=== PATIENT | male | born 1990 | race Caucasian/White ===

== ENCOUNTER 2017-06-09 11:27 | Inpatient (IN) | payer BC ==
[2017-06-09 16:45] VITALS: BMI 18.4
--- NOTE | 2017-06-09 17:08 | HP ---
COWS - Scale Resting Pulse: 0= ID 80 or Below Sweatin= Chills/Flushing Restless Observation: 1= Difficult to Sit Still Pupil Size: 1= Pupils >than Normal Bone or Joint Aches: 2= Severe Diffuse Aches Runny Nose/ Eye Tearin= Runny Nose/Eyes GI Upset > 30mins: 2= Nausea/Diarrhea Tremor Observation: 2= Slight Tremor Visible Yawning Observation: 1= 1-2x During Session Anxiety or Irritability: 2=Irritable/Anxious Goose Flesh Skin: 0=Smooth Skin COWS Score: 14 CIWA Score - CIWA Score Nausea/Vomitin Muscle Tremors: 2 Anxiety: 2 Agitation: 1-Slight > Activity Paroxysmal Sweats: 2 Orientation: 1-Uncertain about Date Tacttile Disturbances: 1-Very Mild Itch/Numbness Auditory Disturbances: 0-None Visual Disturbances: 0-None Headache: 2-Mild CIWA-Ar Total Score: 13 Admission ROS [facility] - HPI Chief Complaint: WITHDRAWAL SYMPTOMS Allergies/Adverse Reactions: Allergies Allergy/AdvReac Type Severity Reaction Status Date / Time No Known Allergies Allergy Verified 07/29/14 13:17 History of Present Illness: 26 Y.O. MAN WITH A HISTORY OF ALCOHOL, HEROIN, COCAINE AND OPIATE DEPENDENCE IS HERE SEEKING DETOX. HE DOES NOT RECALL HIS LAST ADMISSION TO DETOX. LONGEST PERIOD CLEAN HAS BEEN 1 YEAR. PT. FILLED HIS SUBOXONE PRESCRIPTION ON 05/31/17 BUT REPORTS HIS MEDICATION WAS STOLEN AT HIS HOMELESS LONG-TERM SHORTLY AFTER THEM MEDICATION WAS FILLED. Exam Limitations: No Limitations - Ebola screening Have you traveled outside of the country in the last 21 days: No Have you had contact with anyone from an Ebola affected area: No Have you been sick,other than usual withdrawal symptoms: No Do you have a fever: No - Review of Systems Constitutional: Chills, Loss of Appetite, Unintentional Wgt. Loss EENT: reports: Tearing, Nose Congestion Respiratory: reports: Cough Cardiac: reports: No Symptoms Reported GI: reports: Diarrhea, Nausea : reports: No Symptoms Reported Musculoskeletal: reports: Back Pain Integumentary: reports: No Symptoms Reported Neuro: reports: No Symptoms reported Endocrine: reports: No Symptoms Reported Hematology: reports: No Symptoms Reported Psychiatric: reports: Depressed, other (H/O BIPOLAR) Other Systems: Reviewed and Negative Patient History - Patient Medical History Hx Anemia: No Hx Asthma: No Hx Chronic Obstructive Pulmonary Disease (COPD): No Hx Cancer: No Hx Cardiac Disorders: No Hx Congestive Heart Failure: No Hx Hypertension: No Hx Hypercholesterolemia: No Hx Pacemaker: No HX Cerebrovascular Accident: No Hx Seizures: No Hx Dementia: No Hx Diabetes: No Hx Gastrointestinal Disorders: No Hx Liver Disease: No Hx Genitourinary Disorders: No Hx Sexually Transmitted Disorders: No Hx Renal Disease (ESRD): No Hx Thyroid Disease: No Hx Human Immunodeficiency Virus (HIV): No (negative) Hx Hepatitis C: Yes (diagnosed 2013; treated with Harvoni ) Hx Depression: Yes Hx Suicide Attempt: No (denies) Hx Bipolar Disorder: Yes Hx Schizophrenia: No - Patient Surgical History Past Surgical History: No Hx Neurologic Surgery: No Hx Cataract Extraction: No Hx Cardiac Surgery: No Hx Lung Surgery: No Hx Breast Surgery: No Hx Breast Biopsy: No Hx Abdominal Surgery: No Hx Appendectomy: No Hx Cholecystectomy: No Hx Genitourinary Surgery: No Hx Section: No Hx Orthopedic Surgery: No Anesthesia Reaction: No - PPD History Previous Implant?: Yes Documented Results: Negative w/o proof Date: 07/31/14 PPD to be Administered?: Yes - Reproductive History Patient is a Female of Child Bearing Age (11 -55 yrs old): No - Smoking Cessation Smoking history: Current every day smoker Have you smoked in the past 12 months: Yes Aproximately how many cigarettes per day: 10 Hx Chewing Tobacco Use: No Initiated information on smoking cessation: Yes 'Breaking Loose' booklet given: 06/09/17 - Substance & Tx. History Hx Alcohol Use: Yes Hx Substance Use: Yes Substance Use Type: Alcohol, Cocaine, Heroin, Marijuana Hx Substance Use Treatment: Yes (Detox: 2014) - Substances Abused Alcohol Route: Oral Frequency: 3-6 times per week Amount used: 1 pint of liquor Age of first use: 18 Date of Last Use: 06/08/17 Heroin Route: Injection Frequency: Daily Amount used: 4-5 Age of first use: 20 Date of Last Use: 06/09/17 Cocaine Route: Smoking Frequency: 3-6 times per week Amount used: $20 Age of first use: 26 Date of Last Use: 06/08/17 Marijuana/Hashish Route: Smoking Frequency: 3-6 times per week Amount used: $20 Age of first use: 14 Date of Last Use: 06/08/17 Family Disease History - Family Disease History Family History: Denies Admission Physical Exam [facility] - Vital Signs Vital Signs: Vital Signs - 24 hr 06/09/17 16:40 Temperature 97.4 F L Pulse Rate 72 Respiratory 20 Rate Blood Pressure 127/81 - Physical General Appearance: Yes: Thin, Tremorous, Anxious HEENTM: Yes: Hearing grossly Normal, Normal ENT Inspection, Normocephalic Respiratory: Yes: Chest Non-Tender, Lungs Clear, Normal Breath Sounds, No Respiratory Distress, No Accessory Muscle Use Neck: Yes: No masses,lesions,Nodules, Trachea in good position Breast: Yes: Breast Exam Deferred Cardiology: Yes: Regular Rhythm, Regular Rate Abdominal: Yes: Normal Bowel Sounds, Non Tender Genitourinary: Yes: Other (NO COMPLAINTS REPORTED) Back: Yes: Normal Inspection Musculoskeletal: Yes: Gait Steady Extremities: Yes: Normal Inspection, Normal Range of Motion, Non-Tender Neurological: Yes: Alert, Normal Mood/Affect, Normal Response Integumentary: Yes: Dry, Warm, Track [place] Lymphatic: Yes: Within Normal Limits - Diagnostic (1) Alcohol dependence with uncomplicated withdrawal Current Visit: Yes Status: Chronic (2) Opioid dependence with withdrawal Current Visit: Yes Status: Chronic (3) Cocaine dependence, uncomplicated Current Visit: Yes Status: Chronic (4) Hepatitis C Current Visit: Yes Status: Chronic (5) Nicotine dependence Current Visit: Yes Status: Chronic (6) Cannabis dependence, uncomplicated Current Visit: Yes Status: Chronic Cleared for Admission [facility] - Detox or Rehab [facility] Level of Care: Medically Managed Detox Regimen/Protocol: Methadone/Valium [facility] Breath Alcohol Content Breath Alcohol Content: 0 Urine Drug Screen - Results Drug Screen Negative: No Urine Drug Screen Results: THC-Marijuana, LAWRENCE-Cocaine, OPI-Opiates
[2017-06-09] MEDS ORDERED: MAG HYDROX/AL HYDROX/SIMETH 30 ML UNIT-DOSE CUP PO PRN (17:17)
[2017-06-09] MEDS ORDERED: MAGNESIUM CITRATE 300 ML BOTTLE PO PRN (17:17)
[2017-06-09] MEDS ORDERED: LOPERAMIDE HCL 2 MG CAPSULE PO PRN (17:17)
[2017-06-09] MEDS ORDERED: MENTHOL/PHENOL 1 EACH UD MM PRN (17:17)
[2017-06-09] MEDS ORDERED: IBUPROFEN 400 MG TABLET (FP) PO PRN (17:17)
[2017-06-09] MEDS ORDERED: hydrOXYzine PAMOATE 50 MG CAPSULE (FP) PO PRN (17:17)
[2017-06-09] MEDS ORDERED: P-EPHED 60MG/TRIPROLIDI 2.5MG TABLET PO PRN (17:17)
[2017-06-09] MEDS ORDERED: MAGNESIUM HYDROX 2400MG/30ML ORAL SUSPENSION 30 ML CUP PO PRN (17:17)
[2017-06-09] MEDS ORDERED: guaiFENesin/D-METHORPHAN HB 10 ML UNIT-DOSE CUPS PO PRN (17:17)
[2017-06-09] MEDS ORDERED: ACETAMINOPHEN 325 MG TABLET (FP) PO PRN (17:17)
[2017-06-09] MEDS ORDERED: diazePAM 5 MG TABLET PO ONE (18:15)
[2017-06-09] MEDS ORDERED: METHADONE HCL 10 MG TABLET (FOR DETOX USE ONLY) PO ONE ×2 (18:15→23:00)
[2017-06-09] MEDS ORDERED: MELATONIN 5 MG TABLETS PO PRN (22:00)
[2017-06-09] MEDS: THIAMINE HCL 100 MG TABLET (FP) PO SCH (22:48)
[2017-06-09] MEDS: diazePAM 5 MG TABLET PO SCH (22:49)
[2017-06-09 23:04] LABS: URINE APPEARANCE SLCLOUDY; URINE BLOOD NEGATIVE (NEGATIVE); URINE COLOR AMBER; URINE GLUCOSE (UA) NEGATIVE (NEGATIVE); URINE KETONE TRACE (NEGATIVE); URINE LEUK ESTERASE NEGATIVE (NEGATIVE); URINE NITRITE NEGATIVE (NEGATIVE); URINE PROTEIN 2+ (NEGATIVE)
[2017-06-09 23:09] LABS: EPI CELLS RARE /HPF (FEW); URINE MUCUS MANY
[2017-06-10] MEDS: diazePAM 5 MG TABLET PO SCH ×3 (05:20→23:01)
[2017-06-10] MEDS ORDERED: METHADONE HCL 10 MG TABLET (FOR DETOX USE ONLY) PO SCH (10:00)
[2017-06-10] MEDS ORDERED: PRENATAL VITAMINS W/ FOLIC ACID TABLET (FP) PO SCH (10:00)
--- NOTE | 2017-06-10 10:01 | EKG ---
Test Reason : Blood Pressure : / mmHG Vent. Rate : 061 BPM Atrial Rate : 061 BPM P-R Int : 112 ms QRS Dur : 094 ms QT Int : 428 ms P-R-T Axes : 040 076 062 degrees QTc Int : 430 ms NORMAL SINUS RHYTHM NO PREVIOUS ECGS AVAILABLE Confirmed by BRAYDON DURAND MD ([id number]) on 06/10/2017 10:00:55 AM Referred By: Confirmed By:BRAYDON DURAND MD
--- NOTE | 2017-06-10 10:07 | PN ---
[facility] CIWA - CIWA Score Nausea/Vomitin Muscle Tremors: 3 Anxiety: 3 Agitation: 3 Paroxysmal Sweats: 1-Minimal Palms Moist Orientation: 0-Oriented Tacttile Disturbances: 0-None Auditory Disturbances: 0-None Visual Disturbances: 0-None Headache: 0-None Present CIWA-Ar Total Score: 13 S COWS - Scale Resting Pulse: 0= [place] 80 or Below Sweatin= Chills/Flushing Restless Observation: 1= Difficult to Sit Still Pupil Size: 1= Pupils >than Normal Bone or Joint Aches: 1= Mild Discomfort Runny Nose/ Eye Tearin= Nasal Congestion GI Upset > 30mins: 1= Stomach Cramp Tremor Observation of Outstretched Hands: 1= Tremor [place], Not Seen Yawning Observation: 1= 1-2x During Session Anxiety or Irritability: 2=Irritable/Anxious Goose Flesh Skin: 0=Smooth Skin COWS Score: 10 S Progress Note (SOAP) Subjective: nausea, sweats, itnerrupted sleep, anxiety, tremors Objective: 06/10/17 10:06 Vital Signs - 24 hr 06/09/17 06/09/17 06/09/17 16:40 19:08 22:00 Temperature 97.4 F L 97.5 F L 97.7 F Pulse Rate 72 65 68 Respiratory 20 18 17 Rate Blood Pressure 127/81 115/63 132/87 06/10/17 06/10/17 03:30 07:22 Temperature 97.5 F L Pulse Rate 66 Respiratory 18 18 Rate Blood Pressure 98/50 Laboratory Tests 06/09/17 21:02 Urine Color Kati Urine Appearance Slcloudy Urine pH 6.0 Ur Specific Purvis 1.035 Urine Protein 2+ H Urine Glucose (UA) Negative Urine Ketones Trace H Urine Blood Negative Urine Nitrite Negative Urine Bilirubin 2.0 Urine Urobilinogen 2.0 Ur Leukocyte Esterase Negative Urine WBC (Auto) 3 Urine RBC (Auto) 4 Ur Epithelial Cells Rare Urine Mucus Many labs still pending Assessment: 06/10/17 10:06 withdrawal sx - cont detox, fluids, encouraeg ambulation
[2017-06-10 10:38] LABS: HEMATOCRIT 41.4 % (35.4-49); HEMOGLOBIN 14.3 GM/dL (11.7-16.9); MCH 29.6 pg (25.7-33.7); MCHC 34.5 g/dl (32.0-35.9); MEAN CELL VOLUME 85.9 fl (80-96); MEAN PLT VOLUME 8.8 fl (7.5-11.1); PLATELET COUNT 310 K/MM3 (134-434); RBC 4.82 M/mm3 (4.00-5.60); RDW 13.4 % (11.9-15.9); WHITE BLOOD COUNT 6.8 K/mm3 (4.0-10.0)
[2017-06-10] MEDS: diazePAM 5 MG TABLET PO PRN ×2 (10:45→18:41)
[2017-06-10 10:51] LABS: ALK PHOS 70 U/L (45-117); ANION GAP 5 (8-16); BILIRUBIN,TOTAL 0.6 mg/dL (0.2-1.0); BLOOD UREA NITROGEN 15 mg/dL (7-18); CALCIUM 8.8 mg/dL (8.5-10.1); CHLORIDE 102 mmol/L (98-107); CO2 31 mmol/L (21-32); CREATININE 0.8 mg/dL (0.7-1.3); GLUCOSE,RANDOM 81 mg/dL (74-106); POTASSIUM 3.9 mmol/L (3.5-5.1); SGOT/AST 9 U/L (15-37); SGPT/ALT 10 U/L (12-78); SODIUM 138 mmol/L (136-145)
[2017-06-10] MEDS ORDERED: FLU VACCINE QUAD 60 MCG/0.5 ML (MDV 17-18) IM ONE (12:55)
--- NOTE | 2017-06-10 14:34 | CONSULT ---
[facility] Psychiatric Consult - Data Date of interview: 06/10/17 Admission source: [facility] Identifying data: Patient is a 26 year old male, without kids, unemployed, not receiving financial assistance and currently homeless. This is one of multiple admissions for patient. Pt. admitted to for alcohol, marijuana, cocaine, and opiate dependence. Substance Abuse History: Following information confirmed with Mr. Logan: - Smoking Cessation. Smoking history: Current every day smoker. Have you smoked in the past 12 months: Yes. Aproximately how many cigarettes per day: 10. Hx Chewing Tobacco Use: No. Initiated information on smoking cessation: Yes. ' Breaking Loose' booklet given: 06/09/17. - Substance & Tx. History. Hx Alcohol Use: Yes. Hx Substance Use: Yes. Substance Use Type: Alcohol, Cocaine , Heroin, Marijuana. Hx Substance Use Treatment: Yes (Detox: 2015). - Substances Abused. Alcohol. Route: Oral. Frequency: 3-6 times per week. Amount used: 1 pint of liquor. Age of first use: 18. Date of Last Use: . Heroin. Route: Injection. Frequency: Daily. Amount used: 4-5. Age of first use: 20. Date of Last Use: 06/09/17. Cocaine. Route: Smoking. Frequency: 3-6 times per week. Amount used: $20. Age of first use: 26. Date of Last Use: 06/08/17. Marijuana/Hashish. Route: Smoking. Frequency: 3-6 times per week. Amount used: $20. Age of first use: 14. Date of Last Use: Medical History: Hep C (treated with Harvoni in 2013) Psychiatric History: Pt. reports several psychiatric hospitalizations, most recently in February of 2017 at [facility]. Pt. reports being known to several hospitals in [place] but is unable to remember the names. Pt. reports a diagnosis of Bipolar disorder. States outpatient care was provided by a clinic in [facility] but unsure if he was seeing a psychiatrist. As per pharmacy claims and patient, depakote 250 TID and Zyprexa 40mg (only took 20mg) was prescribed to patient. Pt. reports medication nonadherence. Pt. reports several suicide attempts, most recently last year via cutting. Pt. reports suicide attempts of cutting which have resulted in stitches and a h/o overdose on depakote in 2012. Pt. currently denies suicidal and homcidial ideation. Pt. requesting to restart depakote and zyprexa. Physical/Sexual Abuse/Trauma History: Denies. Mental Status Exam - Mental Status Exam Alert and Oriented to: Time, Place, Person Cognitive Function: Good Patient Appearance: Well Groomed Mood: Sad, Euthymic Affect: Mood Congruent Patient Behavior: Cooperative Speech Pattern: Appropriate Voice Loudness: Normal Thought Process: Goal Oriented Thought Disorder: Not Present Hallucinations: Denies Suicidal Ideation: Denies Homicidal Ideation: Denies Insight/Judgement: Poor Sleep: Fair Appetite: Poor Muscle strength/Tone: Normal Gait/Station: Normal Psychiatric Findings - Problem List ([place] 1, 2,3) (1) Alcohol dependence with uncomplicated withdrawal Current Visit: Yes Status: Acute (2) Cannabis dependence, uncomplicated Current Visit: Yes Status: Chronic (3) Cocaine dependence, uncomplicated Current Visit: Yes Status: Chronic (4) Nicotine dependence Current Visit: Yes Status: Chronic (5) Opioid dependence with withdrawal Current Visit: Yes Status: Acute (6) Substance induced mood disorder Current Visit: Yes Status: Acute (7) Bipolar II disorder Current Visit: Yes Status: Suspected Comment: Self reports - Initial Treatment Plan Initial Treatment Plan: Psychoeducation provided. Detoxification in progress. Valproic level ordered. Depakote 500mg qhs + Zyprexa 5mg qhs ordered. Benefits and side effects discussed. Verbal consent given. Will continue to monitor.
[2017-06-10 17:49] VITALS: BP 102/46; PULSE 53; TEMP 98.5
--- NOTE | 2017-06-10 20:53 | PN ---
[facility] Progress Note Note: As per nursing report patient became restless, attention seeking, not fallowing directions and expressing suicidal behavior, patient sad:' I am going to cut my wrists". Security was called, MD [employer] toilet[employer] salesperson contacted by phone. Patient has been transferred to [facility] for safety due to suicidal behavior s per MD order.
[2017-06-10] MEDS ORDERED: DIVALPROEX SODIUM 500 MG TABLET E.C. PO SCH (22:00)
[2017-06-10] MEDS ORDERED: OLANZapine 5 MG TABLET PO SCH (22:00)
[2017-06-10] MEDS: THIAMINE HCL 100 MG TABLET (FP) PO SCH (23:01)
[2017-06-11] MEDS ORDERED: METHADONE HCL 5 MG TABLET (FOR DETOX USE ONLY) PO SCH (10:00)
[2017-06-11] MEDS ORDERED: diazePAM 5 MG TABLET PO SCH (10:00)
== END 2017-06-10 19:57 | DRG 773 ==
LOC: YASAS 11:27 → Y6N 18:08
PROVIDERS: ADMIT Internal Medicine; ATTEND Internal Medicine
PROC: HZ2ZZZZ Detoxification Services for Substance Abuse Treatment (ICD-10-PCS; principal; 2017-06-09)
DX: F11.23 Opioid dependence with withdrawal (principal); F10.230 Alcohol dependence with withdrawal, uncomplicated; F14.20 Cocaine dependence, uncomplicated; F12.20 Cannabis dependence, uncomplicated; F17.210 Nicotine dependence, cigarettes, uncomplicated; F31.81 Bipolar II disorder; F19.24 Other psychoactive substance dependence with psychoactive substance-induced mood disorder; B18.2 Chronic viral hepatitis C
CPT/HCPCS: 36415; 80053; 81003; 81015; 85027; 86593; 87389; 90688; 93005; 93010; G0008

== ENCOUNTER 2017-06-11 18:14 | Inpatient (IN) | payer BC ==
[2017-06-11 18:35] VITALS: BMI 18.6
--- NOTE | 2017-06-11 21:51 | HP ---
COWS - Scale Resting Pulse: 1= [place] 81-100 Sweatin=Flushed/Facial Moisture Restless Observation: 5= Unable to Sit Still Pupil Size: 1= Pupils >than Normal Bone or Joint Aches: 4=Acute Joint/Muscle Pain Runny Nose/ Eye Tearin= Nasal Congestion GI Upset > 30mins: 2= Nausea/Diarrhea Tremor Observation: 1= Tremor [place], Not Seen Yawning Observation: 4= Several Times/Minute Anxiety or Irritability: 2=Irritable/Anxious Goose Flesh Skin: 0=Smooth Skin COWS Score: 23 CIWA Score - CIWA Score Nausea/Vomitin-Mild Nausea/No Vomiting Muscle Tremors: 3 Anxiety: 3 Agitation: 3 Paroxysmal Sweats: 3 Orientation: 0-Oriented Tacttile Disturbances: 0-None Auditory Disturbances: 0-None Visual Disturbances: 0-None Headache: 3-Moderate CIWA-Ar Total Score: 16 Admission ROS [facility] - HPI Chief Complaint: C/O ONGOING WITHDRAWAL SX'S. SEEKING INAPTIENT DETOX TXMENT. Allergies/Adverse Reactions: Allergies Allergy/AdvReac Type Severity Reaction Status Date / Time No Known Allergies Allergy Verified 06/11/17 21:20 History of Present Illness: 26 Y.O. MALE WITH LONG HX/O POLYSUBSTANCE ABUSE RETURNS TO CONTINUE INPATIENT DETOX AFTER BEING DC 24 HOURS AGO AFTER A 24 HOUR STAY FOR SI. CLIENT WAS SENT TO [facility] YESTERDAY WHERE HE WAS EVALUATED IN THEIR ER AND CLEARED TO RETURN BACK FOR CONTINUATION OF DETOX. PER DC PAPERS DX WAS BRIEF ADJUSTMENT RXN WHICH HAS NOW RESOLVED. UTOX NOW + THC, LAWRENCE, BZO. ON ADMISSION ON 06/09/2017 UTOX WAS POSITIVE FOR OPI AND LAWRENCE WELL. CLIENT CONTINUES TO C/O ONGOING WITHDRAWAL SX'S AND WOULD LIKE TO COMPLETED DETOX FOR ALCOHOL, OPIATE DEPENDENCE. CLIENT WAS STARTED ON A METH/MACARIO REGIMEN. WILL CONT ADJUST AND CONT SAME. PMHX HX/O HEPC WAS TX'ED 2016 REPORTS HX/O BIPOLAR, DEPRESSION, DENIES SI/ HI OR AV HALLUCINATIONS AT THIS TIME. REPORTS LONGEST CLEAN TIME 1 YEAR SELF MAINTAINED. - Ebola screening Have you traveled outside of the country in the last 21 days: No (N) Have you had contact with anyone from an Ebola affected area: No Have you been sick,other than usual withdrawal symptoms: No Do you have a fever: No - Review of Systems Constitutional: Chills, Loss of Appetite, Night Sweats, Unintentional Wgt. Loss EENT: reports: Nose Congestion Respiratory: reports: No Symptoms reported Cardiac: reports: No Symptoms Reported GI: reports: Nausea, Poor Appetite : reports: No Symptoms Reported Musculoskeletal: reports: Back Pain, Neck Pain Integumentary: reports: No Symptoms Reported Neuro: reports: No Symptoms reported Endocrine: reports: No Symptoms Reported Hematology: reports: No Symptoms Reported Psychiatric: reports: Anxious, Depressed Other Systems: Reviewed and Negative Patient History - Patient Medical History Hx Anemia: No Hx Asthma: No Hx Chronic Obstructive Pulmonary Disease (COPD): No Hx Cancer: No Hx Cardiac Disorders: No Hx Congestive Heart Failure: No Hx Hypertension: No Hx Hypercholesterolemia: No Hx Pacemaker: No HX Cerebrovascular Accident: No Hx Seizures: No Hx Dementia: No Hx Diabetes: No Hx Gastrointestinal Disorders: No Hx Liver Disease: No Hx Genitourinary Disorders: No Hx Sexually Transmitted Disorders: No Hx Renal Disease (ESRD): No Hx Thyroid Disease: No Hx Human Immunodeficiency Virus (HIV): No (negative) Hx Hepatitis C: Yes (diagnosed 2013; treated with Harvoni ) Hx Depression: Yes Hx Suicide Attempt: No (denies) Hx Bipolar Disorder: Yes Hx Schizophrenia: No - Patient Surgical History Past Surgical History: No Hx Neurologic Surgery: No Hx Cataract Extraction: No Hx Cardiac Surgery: No Hx Lung Surgery: No Hx Breast Surgery: No Hx Breast Biopsy: No Hx Abdominal Surgery: No Hx Appendectomy: No Hx Cholecystectomy: No Hx Genitourinary Surgery: No Hx Section: No Hx Orthopedic Surgery: No Anesthesia Reaction: No - PPD History Previous Implant?: Yes Documented Results: Negative w/proof Implanted On Prior [facility] Admission?: Yes Date: 06/11/17 Results: 0MM PPD to be Administered?: No - Smoking Cessation Smoking history: Current every day smoker Have you smoked in the past 12 months: Yes Aproximately how many cigarettes per day: 10 Hx Chewing Tobacco Use: No Initiated information on smoking cessation: Yes 'Breaking Loose' booklet given: 06/11/17 - Substance & Tx. History Hx Alcohol Use: Yes Hx Substance Use: Yes Substance Use Type: Alcohol, Cocaine, Heroin Hx Substance Use Treatment: Yes ([facility]) - Substances Abused Marijuana/Hashish Route: Smoking Frequency: 3-6 times per week Amount used: $20 Age of first use: 14 Date of Last Use: 06/08/17 Cocaine Route: Smoking Frequency: 3-6 times per week Amount used: $20 Age of first use: 26 Date of Last Use: 06/08/17 Heroin Route: Injection Frequency: Daily Amount used: 4-5 bags Age of first use: 20 Date of Last Use: 06/09/17 LIQUOR Route: Oral Frequency: 3-6 times per week Amount used: 1 PINT Age of first use: 18 Date of Last Use: 06/08/17 Family Disease History - Family Disease History Family Disease History: Other: Father (ALCOHOL/DRUGS), Mother (ALCOHOL/DRUGS) Admission Physical Exam S - Vital Signs Vital Signs: Vital Signs - 24 hr 06/11/17 18:25 Temperature 96.6 F L Pulse Rate 84 Respiratory 18 Rate Blood Pressure 122/61 - Physical General Appearance: Yes: Appropriately Dressed, Mild Distress, Thin, Tremorous ( FELT), Anxious HEENTM: Yes: EOMI, Normocephalic, Normal Voice, BRETT (DIALATED PUPILS), Pharynx Normal, Nasal Congestion Respiratory: Yes: Chest Non-Tender, Lungs Clear, Normal Breath Sounds, No Respiratory Distress, No Accessory Muscle Use Neck: Yes: No masses,lesions,Nodules, Supple, Trachea in good position Breast: Yes: Breast Exam Deferred Cardiology: Yes: Regular Rhythm, Regular Rate, S1, S2 Abdominal: Yes: Non Tender, Flat, Soft, Increased Bowel Sounds Genitourinary: Yes: Within Normal Limits (DENIES C/O) Back: Yes: Normal Inspection Musculoskeletal: Yes: full range of Motion, Gait Steady, Joint Stiffness (C/O), Muscle Pain (C/O) Extremities: Yes: Normal Capillary Refill, Normal Range of Motion, Non-Tender, Tremors (FELT) Neurological: Yes: match up person II-XII NML intact, Fully Oriented, Alert, Motor Strength 5/5 Integumentary: Yes: Warm, Track [place] (INJECTION [place] NOTED TO R/L AC), Other ( FLUCHED) Lymphatic: Yes: Within Normal Limits - Addiitonal Findings: WITHDRAWAL SX'S - Diagnostic (1) Alcohol dependence with uncomplicated withdrawal Current Visit: Yes Status: Chronic (2) Opioid dependence with withdrawal Current Visit: Yes Status: Chronic (3) Substance induced mood disorder Current Visit: Yes Status: Suspected (4) Cannabis dependence, uncomplicated Current Visit: Yes Status: Chronic (5) Cocaine dependence, uncomplicated Current Visit: Yes Status: Chronic (6) Hepatitis C Current Visit: Yes Status: Resolved Comment: TX'ED WITH JERRI (7) Nicotine dependence Current Visit: Yes Status: Chronic Qualifiers: Nicotine product type: cigarettes Substance use status: uncomplicated Qualified Code(s): F17.210 - Nicotine dependence, cigarettes, uncomplicated Cleared for Admission [facility] of Care: Medically Managed Detox Regimen/Protocol: Methadone/Valium S Breath Alcohol Content Breath Alcohol Content: 0 Urine Drug Screen - Results Drug Screen Negative: No Urine Drug Screen Results: THC-Marijuana, LAWRENCE-Cocaine, BZO-Benzodiazepines
[2017-06-11] MEDS ORDERED: diazePAM 5 MG TABLET PO SCH (22:00)
[2017-06-11] MEDS ORDERED: MELATONIN 5 MG TABLETS PO PRN (22:00)
[2017-06-11] MEDS ORDERED: LOPERAMIDE HCL 2 MG CAPSULE PO PRN (22:05)
[2017-06-11] MEDS ORDERED: MAG HYDROX/AL HYDROX/SIMETH 30 ML UNIT-DOSE CUP PO PRN (22:05)
[2017-06-11] MEDS ORDERED: IBUPROFEN 400 MG TABLET (FP) PO PRN (22:05)
[2017-06-11] MEDS ORDERED: ACETAMINOPHEN 325 MG TABLET (FP) PO PRN (22:05)
[2017-06-11] MEDS ORDERED: MAGNESIUM HYDROX 2400MG/30ML ORAL SUSPENSION 30 ML CUP PO PRN (22:05)
[2017-06-11] MEDS ORDERED: METHADONE HCL 10 MG TABLET (FOR DETOX USE ONLY) PO ONE ×2 (22:05→23:00)
[2017-06-11] MEDS ORDERED: MAGNESIUM CITRATE 300 ML BOTTLE PO PRN (22:05)
[2017-06-11] MEDS ORDERED: MENTHOL/PHENOL 1 EACH UD MM PRN (22:05)
[2017-06-11] MEDS ORDERED: diazePAM 5 MG TABLET PO ONE ×2 (22:05→22:30)
[2017-06-11] MEDS ORDERED: guaiFENesin/D-METHORPHAN HB 10 ML UNIT-DOSE CUPS PO PRN (22:05)
[2017-06-11] MEDS ORDERED: NICOTINE POLACRILEX 2 MG GUM BC PRN (22:05)
[2017-06-11] MEDS ORDERED: P-EPHED 60MG/TRIPROLIDI 2.5MG TABLET PO PRN (22:05)
[2017-06-11] MEDS ORDERED: METHADONE HCL 5 MG TABLET (FOR DETOX USE ONLY) PO ONE (22:30)
--- NOTE | 2017-06-12 08:33 | EKG ---
Test Reason : Blood Pressure : / mmHG Vent. Rate : 069 BPM Atrial Rate : 069 BPM P-R Int : 112 ms QRS Dur : 086 ms QT Int : 396 ms P-R-T Axes : 036 080 055 degrees QTc Int : 424 ms NORMAL SINUS RHYTHM NORMAL ECG WHEN COMPARED WITH ECG OF 09-JUN-2017 18:56, NO SIGNIFICANT CHANGE WAS FOUND Confirmed by MARIANA CANAS MD ([id number]) on 06/12/2017 8:33:32 AM Referred By: Confirmed By:MARIANA CANAS MD
[2017-06-12] MEDS ORDERED: METHADONE HCL 5 MG TABLET (FOR DETOX USE ONLY) PO SCH (10:00)
[2017-06-12] MEDS ORDERED: diazePAM 5 MG TABLET PO SCH (10:00)
[2017-06-12] MEDS: PRENATAL VITAMINS W/ FOLIC ACID TABLET (FP) PO SCH (10:18)
[2017-06-12] MEDS: NICOTINE 14 MG/24 HOURS TOPICAL PATCH TD SCH (10:18)
--- NOTE | 2017-06-12 11:33 | PN ---
Psychiatric Progress Note Vital Signs: Vital Signs Period Temp Pulse Resp BP Sys/Mota Pulse Ox Last 24 Hr 95.9 F-98.6 F 58-84 16-18 95-122/54-74 Date of Session: 06/12/17 Chief Complaint:: I'm no longer feel suicidal. I want to complete my detox then go to a long HPI: Patient is a 26 year old single male, unemployed, not receiving financial assistance and currently homeless. This is one of multiple admissions for patient for alcohol, marijuana, cocaine, and opiate dependence. Current Medications: Active Medications Generic Name Dose Route Start Last Admin Trade Name Freq PRN Reason Stop Dose Admin Acetaminophen 650 mg 06/11/17 22:05 Tylenol - PO Q4H PRN FEVER Al Hydroxide/Mg Hydroxide 30 ml 06/11/17 22:05 Mylanta Oral Suspension - PO Q6H PRN DYSPEPSIA Eucalyptus/Menthol/Phenol/Sorbitol 1 each 06/11/17 22:05 Cepastat Lozenge - MM Q4H PRN SORE THROAT Guaifenesin 10 ml 06/11/17 22:05 Robitussin Dm - PO Q6H PRN COUGH Hydroxyzine Pamoate 50 mg 06/11/17 22:05 Vistaril - PO Q4H PRN AGITATION Ibuprofen 400 mg 06/11/17 22:05 Motrin - PO Q6H PRN PAIN LEVEL 4-6 Loperamide HCl 4 mg 06/11/17 22:05 Imodium - PO Q6H PRN DIARRHEA Magnesium Citrate 300 ml 06/11/17 22:05 Citroma - PO Q48H PRN CONSTIPATION Magnesium Hydroxide 30 ml 06/11/17 22:05 Milk Of Magnesia - PO DAILY PRN CONSTIPATION Melatonin 5 mg 06/11/17 22:00 Melatonin PO HS PRN INSOMNIA Methadone HCl 10 mg 06/13/17 10:00 Dolophine - PO 06/13/17 10:01 DAILY RUFUS Methadone HCl 5 mg 06/14/17 06:00 Dolophine - PO 06/14/17 06:01 DAILY@0600 RUFUS Nicotine 14 mg 06/12/17 10:00 06/12/17 10:18 Nicoderm Patch - TD Not Given DAILY RUFUS Nicotine Polacrilex 2 mg 06/11/17 22:05 Nicorette Gum - BC Q2H PRN NICOTINE REPLACEMENT RX Multivit/Folic Acid/Iron 1 tab 06/12/17 10:00 06/12/17 10:18 Vitamins (Sjr) - PO 1 tab DAILY RUFUS Administration Pseudoephedrine/Triprolidine 1 combo 06/11/17 22:05 Actifed - PO TID PRN NASAL CONGESTION Thiamine HCl 100 mg 06/12/17 22:00 Vitamin B1 - PO HS RUFUS Current Side Effect: No Lab tests ordered: Yes Lab tests reviewed: Yes Provider note:: Patient was readmitted from [facility] where he was evaluated for suicidal ideations. Patient was originally admitted to inpatient detox in this facility on 06/09/17. He saw GERRY Cortes on 06/10/17, was diagnosed him with Bipolar II Disorser and ordered Depakote 500 mg po HS and Zyprexa 5 mg po HS. Later on that day, patient became angry following a verbal altercation with another patient who called him deregatory name and he thought that patient was racist. Patient became restless and voiced suicidal ideations. He was seen by Dr Kilgore and transferred out to [facility] for a psychiatric evaluation. At present, he is calm, pleasant and cooperative. He denies experiencing suicidal ideations at this moment. Told television script writer that he wants to completed detox and then go to long term care social worker residential rehab Total face to face time:: 25 Mental Status Exam - Mental Status Exam Alert and Oriented to: Time, Place, Person Cognitive Function: Fair Patient Appearance: Well Groomed Mood: Hopeful, Euthymic Affect: Appropriate Patient Behavior: Cooperative Speech Pattern: Clear Voice Loudness: Normal Thought Process: Intact, Goal Oriented Hallucinations: Denies Suicidal Ideation: Denies Homicidal Ideation: Denies Insight/Judgement: Fair Sleep: Fair Appetite: Fair Muscle strength/Tone: Normal Gait/Station: Normal Psychiatric Treatment Plan - Problem List (1) Bipolar II disorder Current Visit: No Comment: Self reports (2) Substance induced mood disorder Current Visit: Yes (3) Alcohol dependence with uncomplicated withdrawal Current Visit: Yes (4) Opioid dependence with withdrawal Current Visit: Yes (5) Cocaine dependence, uncomplicated Current Visit: Yes (6) Cannabis dependence, uncomplicated Current Visit: Yes (7) Nicotine dependence Current Visit: Yes Qualifiers: Nicotine product type: cigarettes Substance use status: uncomplicated Qualified Code(s): F17.210 - Nicotine dependence, cigarettes, uncomplicated Initial treatment plan: 1) Resume Depakote 250 mg po TID and Zyprexa 20 mg po HS. 2) Continue inpatient detoxification
[2017-06-12] MEDS ORDERED: DIVALPROEX SODIUM 500 MG TABLET E.C. PO SCH (12:00)
[2017-06-12] MEDS: hydrOXYzine PAMOATE 50 MG CAPSULE (FP) PO PRN ×3 (12:45→21:22)
[2017-06-12] MEDS: DIVALPROEX SODIUM 250 MG TABLET E.C. PO SCH ×2 (13:32→22:23)
--- NOTE | 2017-06-12 16:23 | PN ---
[facility] CIWA - CIWA Score Nausea/Vomitin Muscle Tremors: 3 Anxiety: 3 Agitation: 3 Paroxysmal Sweats: 3 Orientation: 0-Oriented Tacttile Disturbances: 1-Very Mild Itch/Numbness Auditory Disturbances: 0-None Visual Disturbances: 0-None Headache: 1-Very Mild CIWA-Ar Total Score: 17 [facility] COWS - Scale Resting Pulse: 0= MT 80 or Below Sweatin= Chills/Flushing Restless Observation: 3= Extraneous Movement Pupil Size: 1= Pupils >than Normal Bone or Joint Aches: 2= Severe Diffuse Aches Runny Nose/ Eye Tearin= Runny Nose/Eyes GI Upset > 30mins: 2= Nausea/Diarrhea Tremor Observation of Outstretched Hands: 2= Slight Tremor Visible Yawning Observation: 1= 1-2x During Session Anxiety or Irritability: 2=Irritable/Anxious Goose Flesh Skin: 0=Smooth Skin COWS Score: 16 S Progress Note (SOAP) Subjective: Lightheaded, dizzy, chills, anxious Objective: 06/12/17 16:19 Last Vital Signs Temp Pulse Resp BP Pulse Ox 97.7 F 70 18 97/59 06/12/17 14:22 06/12/17 14:22 06/12/17 14:22 06/12/17 14:22 Noted with hypotension Labs reviewed: UA abnormal Assessment: 06/12/17 16:21 Withdrawal symptoms Noted with abnormal UA Plan: Continue detox Encouraged PO hydration (water), water pitcher ordered Abnormal UA: encouraged to drink more water, repeat UA
[2017-06-12] MEDS: OLANZapine 10 MG TABLET PO SCH (22:23)
[2017-06-12] MEDS: THIAMINE HCL 100 MG TABLET (FP) PO SCH (22:24)
[2017-06-13] MEDS: DIVALPROEX SODIUM 250 MG TABLET E.C. PO SCH ×3 (07:41→22:10)
[2017-06-13] MEDS ORDERED: METHADONE HCL 10 MG TABLET (FOR DETOX USE ONLY) PO SCH (10:00)
[2017-06-13] MEDS ORDERED: diazePAM 5 MG TABLET PO SCH (10:00)
[2017-06-13] MEDS: PRENATAL VITAMINS W/ FOLIC ACID TABLET (FP) PO SCH (10:05)
[2017-06-13] MEDS: NICOTINE 14 MG/24 HOURS TOPICAL PATCH TD SCH (10:05)
[2017-06-13] MEDS: hydrOXYzine PAMOATE 50 MG CAPSULE (FP) PO PRN ×2 (12:59→19:32)
--- NOTE | 2017-06-13 13:15 | PN ---
[facility] CIWA - CIWA Score Nausea/Vomitin Muscle Tremors: 3 Anxiety: 2 Agitation: 3 Paroxysmal Sweats: 3 Orientation: 0-Oriented Tacttile Disturbances: 0-None Auditory Disturbances: 0-None Visual Disturbances: 0-None Headache: 0-None Present CIWA-Ar Total Score: 14 [facility] COWS - Scale Resting Pulse: 0= MT 80 or Below Sweatin=Flushed/Facial Moisture Restless Observation: 0= Sits Still Pupil Size: 0= Normal to Room Light Bone or Joint Aches: 1= Mild Discomfort Runny Nose/ Eye Tearin= Nasal Congestion GI Upset > 30mins: 2= Nausea/Diarrhea Tremor Observation of Outstretched Hands: 2= Slight Tremor Visible Yawning Observation: 1= 1-2x During Session Anxiety or Irritability: 2=Irritable/Anxious Goose Flesh Skin: 0=Smooth Skin COWS Score: 11 [facility] Progress Note (SOAP) Subjective: sweats Diarrhea shakes Objective: 06/13/17 13:12 sleepy, arousable Irritable Vital Signs Temperature 96.2 F L 06/13/17 09:16 Pulse Rate 57 L 06/13/17 09:16 Respiratory Rate 18 06/13/17 09:16 Blood Pressure 85/50 06/13/17 09:16 O2 Sat by Pulse Oximetry (%) Bp low, low HR - denies any symptoms Labs from 06/10/17 reviewed Assessment: 06/13/17 13:14 withdrawal sx Small body frame Low BMI Plan: continue detox Increased hydration Ensure supplement For UA
--- NOTE | 2017-06-13 13:21 | PN ---
[facility] Progress Note Note: UA ordered, results pending
[2017-06-13 17:57] LABS: URINE APPEARANCE TURBID; URINE BILIRUBIN NEGATIVE (<2.0 mg/dL); URINE BLOOD NEGATIVE (NEGATIVE); URINE COLOR AMBER; URINE GLUCOSE (UA) NEGATIVE (NEGATIVE); URINE KETONE TRACE (NEGATIVE); URINE LEUK ESTERASE TRACE (NEGATIVE); URINE NITRITE NEGATIVE (NEGATIVE); URINE UROBILINOGEN NEGATIVE mg/dL (0.2-1.0)
[2017-06-13 18:24] LABS: URINE PROTEIN 2+ (NEGATIVE)
[2017-06-13 21:34] LABS: URINE MUCUS MANY
[2017-06-13] MEDS: OLANZapine 10 MG TABLET PO SCH (22:10)
[2017-06-13] MEDS: THIAMINE HCL 100 MG TABLET (FP) PO SCH (22:10)
[2017-06-14] MEDS ORDERED: METHADONE HCL 5 MG TABLET (FOR DETOX USE ONLY) PO SCH (06:00)
[2017-06-14] MEDS: DIVALPROEX SODIUM 250 MG TABLET E.C. PO SCH ×3 (06:57→22:52)
[2017-06-14] MEDS: PRENATAL VITAMINS W/ FOLIC ACID TABLET (FP) PO SCH (10:22)
[2017-06-14] MEDS: NICOTINE 14 MG/24 HOURS TOPICAL PATCH TD SCH (10:22)
--- NOTE | 2017-06-14 13:40 | PN ---
S Progress Note (SOAP) Subjective: Patient reports mild fatigue, anxiety, and sweating. Objective: PATIENT A & O X 3, OBSERVED AMBULATING ON UNIT. NO ACUTE DISTRESS. PATIENT DENIES CURRENT SUICIDAL IDEATION / HOMICIDAL IDEATION. 06/14/17 13:37 Vital Signs Temperature 97.7 F 06/14/17 13:29 Pulse Rate 64 06/14/17 13:29 Respiratory Rate 18 06/14/17 13:29 Blood Pressure 101/70 06/14/17 13:29 O2 Sat by Pulse Oximetry (%) Laboratory Tests 06/13/17 13:00 Urine Color Kati Urine Appearance Turbid Urine pH 7.0 Ur Specific [place] 1.017 Urine Protein 2+ H Urine Glucose (UA) Negative Urine Ketones Trace H Urine Blood Negative Urine Nitrite Negative Urine Bilirubin Negative Urine Urobilinogen Negative Ur Leukocyte Esterase Trace Urine WBC (Auto) 20 Urine RBC (Auto) 60 Urine Mucus Many ADMISSION LABS NOTED. 06/14/17 16:26 Assessment: 06/14/17 13:39 DETOX SYMPTOMS. 06/14/17 16:22 Plan: CONTINUE DETOX. PATIENT SCHEDULED FOR DISCHARGE FROM DETOX UNIT TODAY. PATIENT WISHES TO GO TO [facility] FOR AFTERCARE. HOWEVER, DUE TO LINGERING DETOX SYMPTOMS AND DUE TO FACT THAT INSURANCE APPROVAL FOR REHAB STILL PENDING, PATIENT PERMITTED TO REMAIN ON DETOX UNIT UNTIL TOMORROW, 06/15/2017.
--- NOTE | 2017-06-14 15:08 | PN ---
Psychiatric Progress Note Vital Signs: Vital Signs Period Temp Pulse Resp BP Sys/Mota Pulse Ox Last 24 Hr 95.9 F-98.4 F 53-70 -18 85-104/50-70 Date of Session: 06/14/17 Chief Complaint:: " I feel fine.I am waiting for a bed in rehab." HPI: Case of a 26 y/o male, initially admitted to [address] [place] [address] on 06/09/17, sent to [facility] for a psychiatric evaluation, on 06/10/17, to address suicidal ideation, psychiatrically cleared and returned to [facility] for continuation of detoxification treatment.However, for administrative reasons (conflict with another peer), the patient was re-routed to [address] [place] [address].Hospital course has been uneventful since the transfer as evidenced by non -occurrence of incidents and patient's adherence to unit rules.This is a routine psychiatric follow-up evaluation. ROS: Unremarkable.No somatic complaints offered.Patient is found to be cognitively intact. Current Medications: Active Medications Generic Name Dose Route Start Last Admin Trade Name Billq PRN Reason Stop Dose Admin Acetaminophen 650 mg 06/11/17 22:05 Tylenol - PO Q4H PRN FEVER Al Hydroxide/Mg Hydroxide 30 ml 06/11/17 22:05 Mylanta Oral Suspension - PO Q6H PRN DYSPEPSIA Divalproex Sodium 250 mg 06/12/17 14:00 06/14/17 06:57 Depakote - PO 250 mg TID RUFUS Administration Eucalyptus/Menthol/Phenol/Sorbitol 1 each 06/11/17 22:05 Cepastat Lozenge - MM Q4H PRN SORE THROAT Guaifenesin 10 ml 06/11/17 22:05 Robitussin Dm - PO Q6H PRN COUGH Hydroxyzine Pamoate 50 mg 06/11/17 22:05 06/13/17 19:32 Vistaril - PO 50 mg Q4H PRN Administration AGITATION Ibuprofen 400 mg 06/11/17 22:05 Motrin - PO Q6H PRN PAIN LEVEL 4-6 Loperamide HCl 4 mg 06/11/17 22:05 Imodium - PO Q6H PRN DIARRHEA Magnesium Citrate 300 ml 06/11/17 22:05 Citroma - PO Q48H PRN CONSTIPATION Magnesium Hydroxide 30 ml 04/21/18 22:05 Milk Of Magnesia - PO DAILY PRN CONSTIPATION Melatonin 5 mg 06/11/17 22:00 06/12/17 22:24 Melatonin PO 5 mg HS PRN Administration INSOMNIA Nicotine 14 mg 06/12/17 10:00 06/14/17 10:22 Nicoderm Patch - TD Not Given DAILY RUFUS Nicotine Polacrilex 2 mg 06/11/17 22:05 Nicorette Gum - BC Q2H PRN NICOTINE REPLACEMENT RX Olanzapine 20 mg 06/12/17 22:00 06/13/17 22:10 Zyprexa - PO 20 mg HS RUFUS Administration Multivit/Folic Acid/Iron 1 tab 06/12/17 10:00 06/14/17 10:22 Vitamins (Sjr) - PO 1 tab DAILY RUFUS Administration Pseudoephedrine/Triprolidine 1 combo 06/11/17 22:05 Actifed - PO TID PRN NASAL CONGESTION Thiamine HCl 100 mg 06/12/17 22:00 06/13/17 22:10 Vitamin B1 - PO 100 mg HS RUFUS Administration Medication(s) Change(s): No changes necessary.Medications reviewed and re- discussed with the patient.Mr Logan is made aware of risk of liver dysfunction, blood dyscrasias,weight gain,hair loss (depakote) and metabolic syndrome, cardiovascular adverse events (olanzapine/zyprexa).He endorses these drugs as efficacious in the management of his condition (bipolar disorder) and well tolerated in the past.Patient has agreed to remain adherent to this regimen ( depakote 250 mg po tid + zyprexa 20 mg po hs). Current Side Effect: No Lab tests ordered: Yes (valproic acid level) Lab tests reviewed: Yes (appropriate for continuation of current medications.) Provider note:: Chart reviewed.Multidisciplinary notes seen.Psychiatric reports from GERRY Okeefe and attending psychiatrists,Dr Guadalupe + Dr Rosenthal : appreciated.Met with the patient at bedside.Found resting in bed.Awake,alert and fully oriented.Conversant and goal-directed.Patient complains of fatigue but he indicates that he is progressing well otherwise.He is aware that the treatment team is actively working on his disposition (transfer to an inpatient rehabilitation unit).Mr Logan expresses his satisfaction about the prospect of transitioning to rehab care." I now feel much better.I have no intent or plan to hurt myself or anybody.I have been without my medications and I am happy to receive professional help." Patient is noted as calm,controlled,appropriate on approach and cooperative with the interviewer.No evidence of psychosis or allyson.Personal hygiene remains decent.Mr Logan is supportive of his current plan of care and has been cooperative with the multidisciplinary team.He is NOT a danger to self or others.Mental status is stable. Total face to face time:: 35 Mental Status Exam - Mental Status Exam Alert and Oriented to: Time, Place, Person Cognitive Function: Good Patient Appearance: Well Groomed Mood: Hopeful, Euthymic Affect: Normal Range Patient Behavior: Fatigued, Appropriate, Cooperative Speech Pattern: Clear, Appropriate Voice Loudness: Normal Thought Process: Intact, Goal Oriented Thought Disorder: Not Present Hallucinations: Denies Suicidal Ideation: Denies Homicidal Ideation: Denies Insight/Judgement: Fair Sleep: Well Appetite: Good Muscle strength/Tone: Normal Gait/Station: Normal Psychiatric Treatment Plan - Problem List (1) Alcohol dependence with uncomplicated withdrawal Current Visit: Yes (2) Opioid dependence with withdrawal Current Visit: Yes (3) Cannabis dependence, uncomplicated Current Visit: Yes (4) Cocaine dependence, uncomplicated Current Visit: Yes (5) Nicotine dependence Current Visit: Yes Qualifiers: Nicotine product type: cigarettes Substance use status: uncomplicated Qualified Code(s): F17.210 - Nicotine dependence, cigarettes, uncomplicated (6) Substance induced mood disorder Current Visit: Yes (7) Bipolar disorder Current Visit: Yes Comment: As per self-report.Currently on medications.
[2017-06-14] MEDS: hydrOXYzine PAMOATE 50 MG CAPSULE (FP) PO PRN ×2 (18:44→22:54)
[2017-06-14] MEDS: OLANZapine 10 MG TABLET PO SCH (22:51)
[2017-06-14] MEDS: THIAMINE HCL 100 MG TABLET (FP) PO SCH (22:51)
[2017-06-15] MEDS: DIVALPROEX SODIUM 250 MG TABLET E.C. PO SCH (06:08)
[2017-06-15 09:54] VITALS: BP 103/70; PULSE 78; TEMP 96.3
[2017-06-15] MEDS ORDERED: diazePAM 5 MG TABLET PO SCH (10:00)
--- NOTE | 2017-06-15 10:44 | DS ---
[facility] Detox Discharge Summary Admission Date: 06/11/17 Discharge Date: 06/15/17 - History Present History: Alcohol Dependence Additional Comments: DETOX COMPLETED. ALERT O X 3. NAD. Pertinent Past History: PLEASE SEE DX BELOW. - Physical Exam Results Vital Signs: Vital Signs Temperature 96.3 F L 06/15/17 09:53 Pulse Rate 78 06/15/17 09:53 Respiratory Rate 18 06/15/17 09:53 Blood Pressure 103/70 06/15/17 09:53 O2 Sat by Pulse Oximetry (%) Pertinent Admission Physical Exam Findings: WITHDRAWAL SX Laboratory Last Values Urine Color Kati 06/13/17 13:00 Urine Appearance Turbid 06/13/17 13:00 Urine pH 7.0 (5.0-8.0) 06/13/17 13:00 Ur Specific [place] 1.017 (1.001-1.035) 06/13/17 13:00 Urine Protein 2+ (NEGATIVE) H 06/13/17 13:00 Urine Glucose (UA) Negative (NEGATIVE) 06/13/17 13:00 Urine Ketones Trace (NEGATIVE) H 06/13/17 13:00 Urine Blood Negative (NEGATIVE) 06/13/17 13:00 Urine Nitrite Negative (NEGATIVE) 06/13/17 13:00 Urine Bilirubin Negative (<2.0 mg/dL) 06/13/17 13:00 Urine Urobilinogen Negative mg/dL (0.2-1.0) 06/13/17 13:00 Ur Leukocyte Esterase Trace (NEGATIVE) 06/13/17 13:00 Urine WBC (Auto) 20 /hpf (3-5) 06/13/17 13:00 Urine RBC (Auto) 60 /hpf (0-3) 06/13/17 13:00 Urine Mucus Many 06/13/17 13:00 - Treatment Hospital Course: Detox Protocol Followed, Detoxed Safely, Responded well, Discharged Condition Good - Medication Discharge Medications: Ambulatory Orders Divalproex [Depakote -] 250 mg PO TID #90 tablet.ec 06/12/17 Olanzapine [Zyprexa] 20 mg PO HS #30 tablet 06/12/17 - Diagnosis (1) Alcohol dependence with uncomplicated withdrawal Status: Acute (2) History of hepatitis C Status: Chronic (3) Nicotine dependence Status: Acute Qualifiers: Nicotine product type: cigarettes Substance use status: in withdrawal Qualified Code(s): F17.213 - Nicotine dependence, cigarettes, with withdrawal (4) Cannabis dependence, uncomplicated Status: Acute (5) Cocaine dependence, uncomplicated Status: Acute (6) Opioid dependence with withdrawal Status: Acute (7) Substance induced mood disorder Status: Suspected (8) Bipolar disorder Status: Chronic - AMA Did Patient Leave Against Medical Advice: No
[2017-06-15] MEDS: PRENATAL VITAMINS W/ FOLIC ACID TABLET (FP) PO SCH (10:51)
[2017-06-15] MEDS: hydrOXYzine PAMOATE 50 MG CAPSULE (FP) PO PRN (10:52)
[2017-06-15] MEDS: NICOTINE 14 MG/24 HOURS TOPICAL PATCH TD SCH (12:49)
== END 2017-06-15 12:10 | disposition other institution (70) | DRG 772 ==
LOC: YASAS 18:14 → Y3N 18:35
PROVIDERS: ADMIT Internal Medicine; ATTEND Internal Medicine
PROC: HZ2ZZZZ Detoxification Services for Substance Abuse Treatment (ICD-10-PCS; principal; 2017-06-11)
PROC: HZ93ZZZ Pharmacotherapy for Substance Abuse Treatment, Antabuse (ICD-10-PCS; 2017-06-11)
DX: F11.23 Opioid dependence with withdrawal (principal); F10.230 Alcohol dependence with withdrawal, uncomplicated; F14.20 Cocaine dependence, uncomplicated; F12.20 Cannabis dependence, uncomplicated; F17.213 Nicotine dependence, cigarettes, with withdrawal; F19.24 Other psychoactive substance dependence with psychoactive substance-induced mood disorder; F31.9 Bipolar disorder, unspecified; F31.81 Bipolar II disorder; F39 Unspecified mood [affective] disorder; B18.2 Chronic viral hepatitis C
CPT/HCPCS: 36415; 80164; 81003; 81015; 93005; 93010

== ENCOUNTER 2017-06-15 12:24 | Inpatient (IN) | payer BC ==
--- NOTE | 2017-06-15 13:38 | HP ---
Psychiatrist Admission - Data Date of interview: 06/15/17 Admission source: 3N Identifying data: This is the first [facility] admission for this 26 years old single male, unemployed with no source of income, homeless Medical History: Significant for history of treatment for hepatitis C treated with [facility] in 2016. Smokes 10 cigarettes daily Psychiatric History: Patient reports that his first psychiatric treament was in 2011 whe he was admitted to [facility] for suicidal attempt by cutting. He was diagnosed with Bipolar Disorder and treated with Depakote and Zyprexa. Reports a few subsequent admissions most to hospitals in [place] and most recently to [facility] in February 2017. He was discharged on Depakote 250 mg po TID and Zyprexa 40 mg po daily and referred to a clinic in [facility] where he attended till March 2017. He was seen by GERRY Cortes on 06/10/17 while in detox and prescribed Depakote 250 mg po TID and Zyprexa 5 mg po HS. While in detox,patient voiced suicidal ideations and was referred to [facility] for evaluation. He was discharged back to this facility after he was psychiatrically cleared. He was seen by insurance underwriter on 06/12/17 and was placed on Depakote 250 mg po TID and Zyprexa 20 mg po HS. Reports history of mutiple suicidal attempts by overdosing and cutting. Most recent was in 2017 by overdosing. At present, reports feeling anxious and sleeping poorly Physical/Sexual Abuse/Trauma History: Denies history of emotional, physical or sexual abuse as well as DV relationship. No service Additional Comment: Reports history of multiple previous misdemeanor arrests. Denies being on probation currently Allergies/Adverse Reactions: Allergies Allergy/AdvReac Type Severity Reaction Status Date / Time No Known Allergies Allergy Verified 06/11/17 21:20 Date of last physical exam: 06/10/17 Concur with the findings of this exam: Yes - Substance Abuse/Tx History Hx Alcohol Use: Yes Hx Substance Use: Yes Substance Use Type: Alcohol (Started drinking alcohol at age 18, consumes one pint of liquor 3-6 times weekly. Last drank on 06/08/17), Heroin (Started using heroin at age 20, consumes 4) Mental Status Exam - Mental Status Exam Alert and Oriented to: Time, Place, Person Cognitive Function: Fair Patient Appearance: Well Groomed Mood: Anxious Affect: Appropriate Patient Behavior: Cooperative Speech Pattern: Clear Voice Loudness: Normal Thought Process: Intact, Goal Oriented Hallucinations: Denies Suicidal Ideation: Denies Homicidal Ideation: Denies Insight/Judgement: Fair Sleep: Poorly Appetite: Good Muscle strength/Tone: Normal Gait/Station: Normal Psychiatric Findings - Problem List ([employer] 1, 2,3) (1) Alcohol dependence Current Visit: Yes Status: Acute (2) Opioid dependence Current Visit: Yes Status: Acute (3) Cocaine dependence Current Visit: Yes Status: Acute (4) Cannabis dependence Current Visit: Yes Status: Acute (5) Nicotine dependence Current Visit: Yes Status: Chronic (6) Bipolar II disorder Current Visit: No Status: Chronic Comment: Self reports (7) Substance-induced anxiety disorder Current Visit: Yes Status: Acute (8) Substance-induced sleep disorder Current Visit: Yes Status: Acute (9) History of hepatitis C Current Visit: No Status: Chronic - Initial Treatment Plan Initial Treatment Plan: 1) Continue Depakote 250 mg po TID and Zyprexa 20 mg po HS. 2) Start Melatonin 5 mg po HS prn for insomnia. 3) Monitor progress
[2017-06-15] MEDS: hydrOXYzine PAMOATE 50 MG CAPSULE (FP) PO PRN (20:00)
[2017-06-15] MEDS: OLANZapine 10 MG TABLET PO SCH (21:17)
[2017-06-15] MEDS: MELATONIN 5 MG TABLETS PO PRN (21:17)
[2017-06-15] MEDS: DIVALPROEX SODIUM 250 MG TABLET E.C. PO SCH (21:17)
[2017-06-15] MEDS ORDERED: hydrOXYzine PAMOATE 50 MG CAPSULE (FP) PO PRN (21:54)
[2017-06-15] MEDS ORDERED: MAGNESIUM HYDROX 2400MG/30ML ORAL SUSPENSION 30 ML CUP PO PRN (21:54)
[2017-06-15] MEDS ORDERED: IBUPROFEN 400 MG TABLET (FP) PO PRN (21:54)
[2017-06-15] MEDS ORDERED: MAGNESIUM CITRATE 300 ML BOTTLE PO PRN (21:54)
[2017-06-15] MEDS ORDERED: LOPERAMIDE HCL 2 MG CAPSULE PO PRN (21:54)
[2017-06-15] MEDS ORDERED: guaiFENesin/D-METHORPHAN HB 10 ML UNIT-DOSE CUPS PO PRN (21:54)
[2017-06-15] MEDS ORDERED: MAG HYDROX/AL HYDROX/SIMETH 30 ML UNIT-DOSE CUP PO PRN (21:54)
[2017-06-15] MEDS ORDERED: NICOTINE POLACRILEX 2 MG GUM BUC PRN (21:54)
[2017-06-15] MEDS ORDERED: MENTHOL/PHENOL 1 EACH UD MM PRN (21:54)
[2017-06-15] MEDS ORDERED: P-EPHED 60MG/TRIPROLIDI 2.5MG TABLET PO PRN (21:54)
[2017-06-15] MEDS ORDERED: ACETAMINOPHEN 325 MG TABLET (FP) PO PRN (21:54)
--- NOTE | 2017-06-15 21:56 | HP ---
[facility] Assess/Revision - Admission History Admitted to Rehab from: [facility] Date of Admission to Rehab: 06/15/17 - Findings Detox History & Physical reviewed: Yes Concur with findings: Yes Inpatient Rehab Admission - Initial Determination Are CD services needed?: Yes Free of communicable disease: Yes Not in need of hospitalization: Yes - Rehab Admission Criteria Previous failed treatment: Yes Poor recovery environment: Yes Comorbidities: Yes Lacks judgement: Yes Patient is meeting Inpatient Rehab admission criteria:: Yes
[2017-06-15] MEDS ORDERED: MELATONIN 5 MG TABLETS PO PRN (22:00)
[2017-06-15] MEDS: THIAMINE HCL 100 MG TABLET (FP) PO SCH (22:09)
[2017-06-16] MEDS: DIVALPROEX SODIUM 250 MG TABLET E.C. PO SCH ×3 (06:16→21:07)
[2017-06-16] MEDS: NICOTINE 14 MG/24 HOURS TOPICAL PATCH TD SCH (09:36)
[2017-06-16] MEDS: PRENATAL VITAMINS W/ FOLIC ACID TABLET (FP) PO SCH (09:36)
[2017-06-16] MEDS: hydrOXYzine PAMOATE 50 MG CAPSULE (FP) PO PRN ×2 (13:36→17:39)
--- NOTE | 2017-06-16 14:17 | PN ---
[facility] Progress Note Note: Patient s/p detox for opioids 06/11/17 - 06/15/17. Patient c/o protracted withdrawal, body aches chills, sweats and anxiety . As per patient he was in a Suboxone program and did not fill his mot script for Suboxone. Others' Prescriptions Patient Name: Cal Logan Date: 1990 Address: [facility] [place] [address] Sex: Male Rx Written Rx Dispensed Drug Quantity Days Supply Prescriber Name 05/31/2017 05/31/2017 buprenorphine-naloxone 8-2 mg sl tablet 21 21 Nguyen Wilkerson 05/17/2017 05/17/2017 buprenorphine-naloxone 8-2 mg sl tablet 14 14 Nguyen Wilkerson 04/26/2017 04/26/2017 buprenorphine-naloxone 8-2 mg sl tablet 14 14 Nguyen Wilkerson 04/12/2017 04/12/2017 suboxone 8 mg-2 mg sl film 14 14 Nguyen Wilkerson Patient Name: Matt Logan Date: 1990 Address[address] [address] Sex: Male Rx Written Rx Dispensed Drug Quantity Days Supply Prescriber Name 03/17/2017 03/18/2017 suboxone 8 mg-2 mg sl film 30 30 Jessica Farmer Vital Signs Temperature 97.6 F 06/16/17 06:45 Pulse Rate 62 06/16/17 06:45 Respiratory Rate 18 06/16/17 06:45 Blood Pressure 112/70 06/16/17 06:45 O2 Sat by Pulse Oximetry (%) A/P Patient AOx3, anxious No adventitious lung sounds + body aches + mild diaphoresis - Protracted withdrawal Plan: Flexeril 5 mg TID PRN Start Suboxone 2mg today, patient will be monitor for dose adjustment Continue to monitor
[2017-06-16] MEDS: CYCLOBENZAPRINE HCL 5 MG TABLET PO PRN (15:15)
[2017-06-16] MEDS: BUPRENORPHINE/NALOXONE 2 MG/0.5 MG FILM PACKET SL SCH (15:15)
[2017-06-16] MEDS: OLANZapine 10 MG TABLET PO SCH (21:07)
[2017-06-16] MEDS: MELATONIN 5 MG TABLETS PO PRN (21:07)
[2017-06-16] MEDS: THIAMINE HCL 100 MG TABLET (FP) PO SCH (21:07)
[2017-06-17] MEDS: DIVALPROEX SODIUM 250 MG TABLET E.C. PO SCH ×3 (06:14→21:16)
[2017-06-17] MEDS: CYCLOBENZAPRINE HCL 5 MG TABLET PO PRN ×4 (07:21→21:16)
[2017-06-17] MEDS: hydrOXYzine PAMOATE 50 MG CAPSULE (FP) PO PRN ×3 (07:21→20:27)
[2017-06-17] MEDS ORDERED: PT OWN MED DRAWER 7, Y5N ONE (09:08)
[2017-06-17] MEDS: PRENATAL VITAMINS W/ FOLIC ACID TABLET (FP) PO SCH (09:42)
[2017-06-17] MEDS: NICOTINE 14 MG/24 HOURS TOPICAL PATCH TD SCH (09:42)
[2017-06-17] MEDS: BUPRENORPHINE/NALOXONE 2 MG/0.5 MG FILM PACKET SL SCH (09:42)
[2017-06-17] MEDS: OLANZapine 10 MG TABLET PO SCH (21:16)
[2017-06-17] MEDS: MELATONIN 5 MG TABLETS PO PRN (21:16)
[2017-06-17] MEDS: THIAMINE HCL 100 MG TABLET (FP) PO SCH (21:17)
[2017-06-18] MEDS: DIVALPROEX SODIUM 250 MG TABLET E.C. PO SCH ×3 (06:29→21:18)
[2017-06-18] MEDS: PRENATAL VITAMINS W/ FOLIC ACID TABLET (FP) PO SCH (09:44)
[2017-06-18] MEDS: NICOTINE 14 MG/24 HOURS TOPICAL PATCH TD SCH (09:44)
[2017-06-18] MEDS: BUPRENORPHINE/NALOXONE 2 MG/0.5 MG FILM PACKET SL SCH (09:44)
[2017-06-18] MEDS: hydrOXYzine PAMOATE 50 MG CAPSULE (FP) PO PRN ×4 (10:43→22:21)
[2017-06-18] MEDS: CYCLOBENZAPRINE HCL 5 MG TABLET PO PRN ×2 (10:43→18:06)
[2017-06-18] MEDS: MELATONIN 5 MG TABLETS PO PRN (21:18)
[2017-06-18] MEDS: THIAMINE HCL 100 MG TABLET (FP) PO SCH (21:18)
[2017-06-18] MEDS: OLANZapine 10 MG TABLET PO SCH (21:18)
[2017-06-19] MEDS: DIVALPROEX SODIUM 250 MG TABLET E.C. PO SCH ×3 (06:12→21:25)
[2017-06-19] MEDS: hydrOXYzine PAMOATE 50 MG CAPSULE (FP) PO PRN ×3 (09:37→20:12)
[2017-06-19] MEDS: BUPRENORPHINE/NALOXONE 2 MG/0.5 MG FILM PACKET SL SCH (09:37)
[2017-06-19] MEDS: NICOTINE 14 MG/24 HOURS TOPICAL PATCH TD SCH (09:37)
[2017-06-19] MEDS: PRENATAL VITAMINS W/ FOLIC ACID TABLET (FP) PO SCH (09:37)
[2017-06-19] MEDS: CYCLOBENZAPRINE HCL 5 MG TABLET PO PRN ×2 (09:38→21:25)
[2017-06-19] MEDS: THIAMINE HCL 100 MG TABLET (FP) PO SCH (21:25)
[2017-06-19] MEDS: OLANZapine 10 MG TABLET PO SCH (21:25)
[2017-06-19] MEDS: MELATONIN 5 MG TABLETS PO PRN (21:26)
[2017-06-20] MEDS: DIVALPROEX SODIUM 250 MG TABLET E.C. PO SCH ×3 (06:17→21:11)
[2017-06-20] MEDS: BUPRENORPHINE/NALOXONE 2 MG/0.5 MG FILM PACKET SL SCH (09:48)
[2017-06-20] MEDS: hydrOXYzine PAMOATE 50 MG CAPSULE (FP) PO PRN ×3 (09:48→21:11)
[2017-06-20] MEDS: NICOTINE 14 MG/24 HOURS TOPICAL PATCH TD SCH (09:48)
[2017-06-20] MEDS: PRENATAL VITAMINS W/ FOLIC ACID TABLET (FP) PO SCH (09:48)
[2017-06-20] MEDS: CYCLOBENZAPRINE HCL 5 MG TABLET PO PRN ×2 (09:49→21:11)
[2017-06-20] MEDS: OLANZapine 10 MG TABLET PO SCH (21:11)
[2017-06-20] MEDS: MELATONIN 5 MG TABLETS PO PRN (21:11)
[2017-06-20] MEDS: THIAMINE HCL 100 MG TABLET (FP) PO SCH (21:12)
[2017-06-21] MEDS: DIVALPROEX SODIUM 250 MG TABLET E.C. PO SCH ×3 (06:16→21:17)
[2017-06-21] MEDS: PRENATAL VITAMINS W/ FOLIC ACID TABLET (FP) PO SCH (09:34)
[2017-06-21] MEDS: hydrOXYzine PAMOATE 50 MG CAPSULE (FP) PO PRN ×4 (09:34→22:19)
[2017-06-21] MEDS: BUPRENORPHINE/NALOXONE 2 MG/0.5 MG FILM PACKET SL SCH (09:34)
[2017-06-21] MEDS: NICOTINE 14 MG/24 HOURS TOPICAL PATCH TD SCH (09:34)
[2017-06-21] MEDS: CYCLOBENZAPRINE HCL 5 MG TABLET PO PRN ×2 (09:34→17:55)
[2017-06-21] MEDS: THIAMINE HCL 100 MG TABLET (FP) PO SCH (21:17)
[2017-06-21] MEDS: OLANZapine 10 MG TABLET PO SCH (21:17)
[2017-06-22] MEDS: hydrOXYzine PAMOATE 50 MG CAPSULE (FP) PO PRN ×4 (06:00→18:56)
[2017-06-22] MEDS: DIVALPROEX SODIUM 250 MG TABLET E.C. PO SCH ×3 (06:00→21:20)
[2017-06-22] MEDS: CYCLOBENZAPRINE HCL 5 MG TABLET PO PRN ×2 (06:00→21:20)
[2017-06-22] MEDS: NICOTINE 14 MG/24 HOURS TOPICAL PATCH TD SCH (09:36)
[2017-06-22] MEDS: PRENATAL VITAMINS W/ FOLIC ACID TABLET (FP) PO SCH (09:36)
[2017-06-22] MEDS: BUPRENORPHINE/NALOXONE 2 MG/0.5 MG FILM PACKET SL SCH (09:36)
[2017-06-22] MEDS: OLANZapine 10 MG TABLET PO SCH (21:20)
[2017-06-22] MEDS: THIAMINE HCL 100 MG TABLET (FP) PO SCH (21:20)
[2017-06-22] MEDS: MELATONIN 5 MG TABLETS PO PRN (21:20)
[2017-06-23] MEDS: CYCLOBENZAPRINE HCL 5 MG TABLET PO PRN ×3 (06:14→21:17)
[2017-06-23] MEDS: DIVALPROEX SODIUM 250 MG TABLET E.C. PO SCH ×3 (06:14→21:16)
[2017-06-23] MEDS: hydrOXYzine PAMOATE 50 MG CAPSULE (FP) PO PRN ×4 (06:14→19:04)
[2017-06-23] MEDS: BUPRENORPHINE/NALOXONE 2 MG/0.5 MG FILM PACKET SL SCH (09:51)
[2017-06-23] MEDS: NICOTINE 14 MG/24 HOURS TOPICAL PATCH TD SCH (09:52)
[2017-06-23] MEDS: PRENATAL VITAMINS W/ FOLIC ACID TABLET (FP) PO SCH (09:52)
[2017-06-23] MEDS: OLANZapine 10 MG TABLET PO SCH (21:16)
[2017-06-23] MEDS: THIAMINE HCL 100 MG TABLET (FP) PO SCH (21:16)
[2017-06-24] MEDS: DIVALPROEX SODIUM 250 MG TABLET E.C. PO SCH ×3 (06:13→21:21)
[2017-06-24] MEDS: BUPRENORPHINE/NALOXONE 2 MG/0.5 MG FILM PACKET SL SCH (09:55)
[2017-06-24] MEDS: NICOTINE 14 MG/24 HOURS TOPICAL PATCH TD SCH (09:55)
[2017-06-24] MEDS: PRENATAL VITAMINS W/ FOLIC ACID TABLET (FP) PO SCH (09:55)
[2017-06-24] MEDS: CYCLOBENZAPRINE HCL 5 MG TABLET PO PRN ×2 (09:56→21:21)
[2017-06-24] MEDS: hydrOXYzine PAMOATE 50 MG CAPSULE (FP) PO PRN ×3 (09:56→21:21)
[2017-06-24] MEDS: THIAMINE HCL 100 MG TABLET (FP) PO SCH (21:21)
[2017-06-24] MEDS: MELATONIN 5 MG TABLETS PO PRN (21:21)
[2017-06-24] MEDS: OLANZapine 10 MG TABLET PO SCH (21:21)
[2017-06-25] MEDS: DIVALPROEX SODIUM 250 MG TABLET E.C. PO SCH ×3 (06:21→21:27)
[2017-06-25] MEDS: hydrOXYzine PAMOATE 50 MG CAPSULE (FP) PO PRN ×3 (09:53→18:35)
[2017-06-25] MEDS: PRENATAL VITAMINS W/ FOLIC ACID TABLET (FP) PO SCH (09:53)
[2017-06-25] MEDS: NICOTINE 14 MG/24 HOURS TOPICAL PATCH TD SCH (09:53)
[2017-06-25] MEDS: BUPRENORPHINE/NALOXONE 2 MG/0.5 MG FILM PACKET SL SCH (09:53)
[2017-06-25] MEDS: CYCLOBENZAPRINE HCL 5 MG TABLET PO PRN ×2 (14:10→21:27)
[2017-06-25] MEDS: MELATONIN 5 MG TABLETS PO PRN (21:27)
[2017-06-25] MEDS: THIAMINE HCL 100 MG TABLET (FP) PO SCH (21:27)
[2017-06-25] MEDS: OLANZapine 10 MG TABLET PO SCH (21:27)
[2017-06-26] MEDS: DIVALPROEX SODIUM 250 MG TABLET E.C. PO SCH ×3 (06:04→21:18)
[2017-06-26] MEDS: BUPRENORPHINE/NALOXONE 2 MG/0.5 MG FILM PACKET SL SCH (10:05)
[2017-06-26] MEDS: PRENATAL VITAMINS W/ FOLIC ACID TABLET (FP) PO SCH (10:05)
[2017-06-26] MEDS: NICOTINE 14 MG/24 HOURS TOPICAL PATCH TD SCH (10:06)
[2017-06-26] MEDS: CYCLOBENZAPRINE HCL 5 MG TABLET PO PRN (13:20)
[2017-06-26] MEDS: hydrOXYzine PAMOATE 50 MG CAPSULE (FP) PO PRN ×2 (13:21→21:18)
[2017-06-26] MEDS: OLANZapine 10 MG TABLET PO SCH (21:18)
[2017-06-26] MEDS: THIAMINE HCL 100 MG TABLET (FP) PO SCH (21:18)
[2017-06-27] MEDS: DIVALPROEX SODIUM 250 MG TABLET E.C. PO SCH ×3 (05:57→21:43)
[2017-06-27] MEDS: BUPRENORPHINE/NALOXONE 2 MG/0.5 MG FILM PACKET SL SCH (09:45)
[2017-06-27] MEDS: PRENATAL VITAMINS W/ FOLIC ACID TABLET (FP) PO SCH (09:45)
[2017-06-27] MEDS: NICOTINE 14 MG/24 HOURS TOPICAL PATCH TD SCH (09:45)
[2017-06-27] MEDS: CYCLOBENZAPRINE HCL 5 MG TABLET PO PRN ×2 (14:19→21:43)
[2017-06-27] MEDS: hydrOXYzine PAMOATE 50 MG CAPSULE (FP) PO PRN ×2 (14:19→19:33)
[2017-06-27] MEDS: THIAMINE HCL 100 MG TABLET (FP) PO SCH (21:43)
[2017-06-27] MEDS: MELATONIN 5 MG TABLETS PO PRN (21:43)
[2017-06-27] MEDS: OLANZapine 10 MG TABLET PO SCH (21:43)
[2017-06-28] MEDS: DIVALPROEX SODIUM 250 MG TABLET E.C. PO SCH ×3 (06:05→21:24)
[2017-06-28] MEDS ORDERED: PT OWN MED DRAWER 7, Y5N ONE (09:15)
--- NOTE | 2017-06-28 09:32 | PN ---
Psychiatric Progress Note Vital Signs: Vital Signs Period Temp Pulse Resp BP Sys/Mota Pulse Ox Last 24 Hr 97.6 F 97 18-18 104/59 Date of Session: 06/28/17 Chief Complaint:: Discharge Note HPI: Patient addressing Alcohol, Opioid, Cocane ans Cannabis Dependence comorbid with Nicotine Dependence, Bipolar Disorder, Substance-Induced Anxiety Disorder and Substance-Induced Sleep Disorder ROS: History of Hep C Current Medications: Active Medications Generic Name Dose Route Start Last Admin Trade Name Freq PRN Reason Stop Dose Admin Acetaminophen 650 mg 06/15/17 21:54 Tylenol - PO Q4H PRN FEVER Al Hydroxide/Mg Hydroxide 30 ml 06/15/17 21:54 Mylanta Oral Suspension - PO Q6H PRN DYSPEPSIA Buprenorphine/Naloxone 1 each 06/24/17 10:00 06/27/17 09:45 Suboxone 2mg/0.5mg Sl Film - SL 1 each DAILY RUFUS Administration Cyclobenzaprine HCl 5 mg 06/16/17 14:18 06/27/17 21:43 Cyclobenzaprine Hcl PO 5 mg TID PRN Administration BACK PAIN Divalproex Sodium 250 mg 06/15/17 22:00 06/28/17 06:05 Depakote - PO 250 mg TID RUFUS Administration Eucalyptus/Menthol/Phenol/Sorbitol 1 each 06/15/17 21:54 Cepastat Lozenge - MM Q4H PRN SORE THROAT Guaifenesin 10 ml 06/15/17 21:54 Robitussin Dm - PO Q6H PRN COUGH Hydroxyzine Pamoate 50 mg 06/15/17 15:08 06/27/17 19:33 Vistaril - PO 50 mg Q4H PRN Administration FOR ITCHING Hydroxyzine Pamoate 50 mg 06/15/17 21:54 Vistaril - PO Q4H PRN AGITATION Ibuprofen 400 mg 06/15/17 21:54 Motrin - PO Q6H PRN Pain Level 4-6 Loperamide HCl 4 mg 06/15/17 21:54 Imodium - PO Q6H PRN DIARRHEA Magnesium Citrate 300 ml 06/15/17 21:54 Citroma - PO Q48H PRN CONSTIPATION Magnesium Hydroxide 30 ml 06/15/17 21:54 Milk Of Magnesia - PO DAILY PRN CONSTIPATION Melatonin 5 mg 06/15/17 14:15 06/27/17 21:43 Melatonin PO 5 mg HS PRN Administration INSOMNIA Melatonin 5 mg 06/15/17 22:00 Melatonin PO HS PRN INSOMNIA Nicotine 14 mg 06/16/17 10:00 06/27/17 09:45 Nicoderm Patch - TD 14 mg DAILY RUFUS Administration Nicotine Polacrilex 2 mg 06/15/17 21:54 Nicorette Gum - BUC Q2H PRN NICOTINE REPLACEMENT RX Olanzapine 20 mg 06/15/17 22:00 06/27/17 21:43 Zyprexa - PO 20 mg HS RUFUS Administration Multivit/Folic Acid/Iron 1 tab 06/16/17 10:00 06/27/17 09:45 Vitamins (Sjr) - PO 1 tab DAILY RUFUS Administration Pseudoephedrine/Triprolidine 1 combo 06/15/17 21:54 Actifed - PO TID PRN NASAL CONGESTION Thiamine HCl 100 mg 06/15/17 22:00 06/27/17 21:43 Vitamin B1 - PO 100 mg HS RUFUS Administration Current Side Effect: No Lab tests ordered: Yes Lab tests reviewed: Yes Provider note:: Patient will complete this program on 06/29/17. He has met his treatment goals and will continue to address his issues in [facility] residential treatment at [facility]. He verbalized understanding of the consequences of his addiction and told leader writer he has used the time spent here to self reflex and he has gained more confidence in himself that puts him in a positive state of mind. He responded well to Depakote 250 mg po TID and Zypexa 20 mg po HS. Scripts for these medications will be electronically transmitted to [facility] at [address] [place] [address]. He is stable for discharge on 06/29/17 Total face to face time:: 35 Mental Status Exam - Mental Status Exam Alert and Oriented to: Time, Place, Person Cognitive Function: Fair Patient Appearance: Well Groomed Mood: Hopeful, Euthymic Affect: Appropriate Patient Behavior: Cooperative Speech Pattern: Clear Voice Loudness: Normal Thought Process: Intact, Goal Oriented Thought Disorder: Not Present Hallucinations: Denies Suicidal Ideation: Denies Homicidal Ideation: Denies Insight/Judgement: Fair Sleep: Fair Appetite: Good Muscle strength/Tone: Normal Gait/Station: Normal Psychiatric Treatment Plan - Problem List (6) Bipolar II disorder Comment: Self reports (9) History of hepatitis C Initial treatment plan: Patient will be discharged tomorrow and referred to Tim
[2017-06-28] MEDS: PRENATAL VITAMINS W/ FOLIC ACID TABLET (FP) PO SCH (09:49)
[2017-06-28] MEDS: hydrOXYzine PAMOATE 50 MG CAPSULE (FP) PO PRN ×3 (09:49→20:03)
[2017-06-28] MEDS: NICOTINE 14 MG/24 HOURS TOPICAL PATCH TD SCH (09:49)
[2017-06-28] MEDS: BUPRENORPHINE/NALOXONE 2 MG/0.5 MG FILM PACKET SL SCH (09:49)
[2017-06-28] MEDS: CYCLOBENZAPRINE HCL 5 MG TABLET PO PRN ×2 (14:37→21:25)
--- NOTE | 2017-06-28 16:27 | PN ---
[facility] Progress Note Note: Patient is schedule for discharge tomorrow to will be attending attending [facility] at [address] [place] [address] [phone]. Patient is currently on suboxone 2mg QD, facility requested patient needs 30 day supply of this medication upon admission.
[2017-06-28] MEDS: OLANZapine 10 MG TABLET PO SCH (21:24)
[2017-06-28] MEDS: THIAMINE HCL 100 MG TABLET (FP) PO SCH (21:24)
[2017-06-28] MEDS: MELATONIN 5 MG TABLETS PO PRN (21:25)
[2017-06-29] MEDS: DIVALPROEX SODIUM 250 MG TABLET E.C. PO SCH (06:26)
[2017-06-29 06:51] VITALS: BP 111/67; PULSE 95; TEMP 97.9
[2017-06-29] MEDS: BUPRENORPHINE/NALOXONE 2 MG/0.5 MG FILM PACKET SL SCH (09:05)
[2017-06-29] MEDS: PRENATAL VITAMINS W/ FOLIC ACID TABLET (FP) PO SCH (09:05)
[2017-06-29] MEDS: NICOTINE 14 MG/24 HOURS TOPICAL PATCH TD SCH (09:06)
== END 2017-06-29 09:15 | disposition home or self-care (01) | DRG 772 ==
LOC: YASAS 12:24 → Y3W 12:25
PROVIDERS: ADMIT Psychiatry & Neurology Psychiatry; ATTEND Psychiatry & Neurology Psychiatry
PROC: HZ42ZZZ Group Counseling for Substance Abuse Treatment, Cognitive-Behavioral (ICD-10-PCS; principal; 2017-06-15)
DX: F11.20 Opioid dependence, uncomplicated (principal); F10.20 Alcohol dependence, uncomplicated; F14.20 Cocaine dependence, uncomplicated; F12.20 Cannabis dependence, uncomplicated; F17.210 Nicotine dependence, cigarettes, uncomplicated; F31.81 Bipolar II disorder; F19.280 Other psychoactive substance dependence with psychoactive substance-induced anxiety disorder; F19.282 Other psychoactive substance dependence with psychoactive substance-induced sleep disorder; B18.2 Chronic viral hepatitis C

== ENCOUNTER 2017-12-19 11:44 | Inpatient (IN) | payer OTHER ==
--- NOTE | 2017-12-19 15:50 | HP ---
COWS - Scale Resting Pulse: 2= NM 101-120 Sweatin= Chills/Flushing Restless Observation: 1= Difficult to Sit Still Pupil Size: 1= Pupils >than Normal Bone or Joint Aches: 2= Severe Diffuse Aches Runny Nose/ Eye Tearin= Runny Nose/Eyes GI Upset > 30mins: 2= Nausea/Diarrhea Tremor Observation: 2= Slight Tremor Visible Yawning Observation: 2= >3x During Session Anxiety or Irritability: 2=Irritable/Anxious Goose Flesh Skin: 0=Smooth Skin COWS Score: 17 CIWA Score - CIWA Score Nausea/Vomitin Muscle Tremors: 2 Anxiety: 2 Agitation: 2 Paroxysmal Sweats: 1-Minimal Palms Moist Orientation: 0-Oriented Tacttile Disturbances: 1-Very Mild Itch/Numbness Auditory Disturbances: 1-Very Mild Visual Disturbances: 1-Very Mild Sensitivity Headache: 2-Mild CIWA-Ar Total Score: 14 Admission ROS S - HPI Chief Complaint: i need help to stop using heroin,alcohol,xanax Allergies/Adverse Reactions: Allergies Allergy/AdvReac Type Severity Reaction Status Date / Time No Known Allergies Allergy Verified 12/19/17 14:44 History of Present Illness: this 27 years old male with heroin,alcohol,xanaxseeking detox,withdrawal symptom ,last detox 06/11/17 to 06/15/17 [facility] 06/[facility] to 06/29/17 [facility] from 06/29/17 to 07/30/17 relapsing again after on suboxone 8mg/2mg daily fill on 10/22/17 miss the november appointment did not use suboxone since 11/21/17 has been using heroin since than nicotine dependence weight loss longest sobriety 1 year and a half Exam Limitations: No Limitations - Ebola screening Have you traveled outside of the country in the last 21 days: No Have you had contact with anyone from an Ebola affected area: No Have you been sick,other than usual withdrawal symptoms: No Do you have a fever: No - Review of Systems Constitutional: Chills, Loss of Appetite, Malaise, Night Sweats, Changes in sleep, Weakness, Unintentional Wgt. Loss EENT: reports: Tearing, Nose Congestion Respiratory: reports: No Symptoms reported Cardiac: reports: No Symptoms Reported GI: reports: Diarrhea, Nausea, Vomiting, Abdominal cramping Musculoskeletal: reports: Back Pain, Muscle Pain Integumentary: reports: Dryness Neuro: reports: Headache, Tremors Endocrine: reports: No Symptoms Reported Hematology: reports: No Symptoms Reported Psychiatric: reports: No Sypmtoms Reported, Mood/Affect Appropiate, Orientated x3, Anxious, Depressed Patient History - Patient Medical History Hx Anemia: No Hx Asthma: No Hx Chronic Obstructive Pulmonary Disease (COPD): No Hx Cancer: No Hx Cardiac Disorders: No Hx Congestive Heart Failure: No Hx Hypertension: No Hx Hypercholesterolemia: No Hx Pacemaker: No HX Cerebrovascular Accident: No Hx Seizures: No Hx Dementia: No Hx Diabetes: No Hx Gastrointestinal Disorders: No Hx Liver Disease: No Hx Genitourinary Disorders: No Hx Sexually Transmitted Disorders: No Hx Renal Disease (ESRD): No Hx Thyroid Disease: No Hx Human Immunodeficiency Virus (HIV): No (negative) Hx Hepatitis C: Yes (diagnosed 2013; treated with Harvoni ) Hx Depression: Yes Hx Suicide Attempt: No Hx Bipolar Disorder: Yes (non compliance,stop taking medication for 3 weeks) Hx Schizophrenia: No Other Medical History: no suicidal,no homicidal - Patient Surgical History Past Surgical History: No Hx Neurologic Surgery: No Hx Cataract Extraction: No Hx Cardiac Surgery: No Hx Lung Surgery: No Hx Breast Surgery: No Hx Breast Biopsy: No Hx Abdominal Surgery: No Hx Appendectomy: No Hx Cholecystectomy: No Hx Genitourinary Surgery: No Hx Section: No Hx Orthopedic Surgery: No Anesthesia Reaction: No - PPD History Previous Implant?: Yes Documented Results: Negative w/proof Implanted On Prior [facility] Admission?: Yes Date: 06/14/17 Results: 0 mm PPD to be Administered?: No - Smoking Cessation Smoking history: Current every day smoker Have you smoked in the past 12 months: Yes Aproximately how many cigarettes per day: 10 Hx Chewing Tobacco Use: No Initiated information on smoking cessation: Yes 'Breaking Loose' booklet given: 12/19/17 - Substance & Tx. History Hx Alcohol Use: Yes Hx Substance Use: Yes Substance Use Type: Alcohol, Heroin Hx Substance Use Treatment: Yes ([facility] 06/11/17 to 06/15/17,rehab [facility] to 06/29/17,[facility]) - Substances Abused Heroin Route: Injection Frequency: Daily Amount used: 2-3 bags Age of first use: 20 Date of Last Use: 12/18/17 Alcohol-beer/vodka Route: Oral Frequency: Daily Amount used: 1-2 6 pks./1-2 pts. Age of first use: 21 Date of Last Use: 12/19/17 Xanax Route: Oral Frequency: 3-6 times per week Amount used: 2-4 mg. Age of first use: 26 Date of Last Use: 12/16/17 Family Disease History - Family Disease History Family Disease History: Other: Father (ALCOHOL/DRUGS), Mother (ALCOHOL/DRUGS) Admission Physical Exam [facility] - Vital Signs Vital Signs: Vital Signs - 24 hr 12/19/17 13:51 Temperature 98.7 F Pulse Rate 101 H Respiratory 18 Rate Blood Pressure 136/76 - Physical General Appearance: Yes: Moderate Distress, Tremorous, Irritable, Sweating, Anxious HEENTM: Yes: Normal ENT Inspection, BRETT, Pharynx Normal Respiratory: Yes: Lungs Clear, Normal Breath Sounds, No Respiratory Distress Neck: Yes: Within Normal Limits, Supple, Trachea in good position Breast: Yes: Within Normal Limits Cardiology: Yes: Within Normal Limits, Regular Rhythm, Regular Rate, S1, S2 Abdominal: Yes: Within Normal Limits, Normal Bowel Sounds, Non Tender, Soft Genitourinary: Yes: Within Normal Limits Back: Yes: Normal Inspection, Muscle Spasm Musculoskeletal: Yes: full range of Motion, Back pain, Muscle Pain Extremities: Yes: Normal Range of Motion, Tremors 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 (2) Alcohol dependence with uncomplicated withdrawal Current Visit: No Status: Acute Comment: . (3) Sedative dependence Current Visit: Yes Status: Acute (4) Bipolar disorder Current Visit: No Status: Chronic Comment: .As per self-report.Currently on medications. (5) History of hepatitis C Current Visit: No Status: Chronic (6) Nicotine dependence Current Visit: No Status: Chronic (7) Encounter for monitoring Suboxone maintenance therapy Current Visit: Yes Status: Acute Cleared for Admission S - Detox or Rehab [facility] Level of Care: Medically Managed Detox Regimen/Protocol: Methadone/Valium BHS Breath Alcohol Content Breath Alcohol Content: 0.031 Urine Drug Screen - Results Drug Screen Negative: No Urine Drug Screen Results: OPI-Opiates
[2017-12-19] MEDS ORDERED: MAGNESIUM HYDROX 2400MG/30ML ORAL SUSPENSION 30 ML CUP PO PRN (16:17)
[2017-12-19] MEDS ORDERED: ACETAMINOPHEN 325 MG TABLET (FP) PO PRN (16:17)
[2017-12-19] MEDS ORDERED: NICOTINE POLACRILEX 2 MG GUM BC PRN (16:17)
[2017-12-19] MEDS ORDERED: guaiFENesin/D-METHORPHAN HB 10 ML UNIT-DOSE CUPS PO PRN (16:17)
[2017-12-19] MEDS ORDERED: LOPERAMIDE HCL 2 MG CAPSULE PO PRN (16:17)
[2017-12-19] MEDS ORDERED: MAGNESIUM CITRATE 300 ML BOTTLE PO PRN (16:17)
[2017-12-19] MEDS ORDERED: diazePAM 5 MG TABLET PO PRN (16:17)
[2017-12-19] MEDS ORDERED: MAG HYDROX/AL HYDROX/SIMETH 30 ML UNIT-DOSE CUP PO PRN (16:17)
[2017-12-19] MEDS ORDERED: MENTHOL/PHENOL 1 EACH UD MM PRN (16:17)
[2017-12-19] MEDS ORDERED: hydrOXYzine PAMOATE 50 MG CAPSULE (FP) PO PRN (16:17)
[2017-12-19] MEDS ORDERED: P-EPHED 60MG/TRIPROLIDI 2.5MG TABLET PO PRN (16:17)
[2017-12-19] MEDS ORDERED: IBUPROFEN 400 MG TABLET (FP) PO PRN (16:17)
--- NOTE | 2017-12-19 16:25 | PN ---
S Progress Note Note: please be noted that patient is on suboxone 8mg/2mg sl daily,last taken ,did not take suboxone since then, has been using heroine since then plan to go back to his pmd to continue suboxone after detox
[2017-12-19] MEDS ORDERED: diazePAM 5 MG TABLET PO ONE (17:00)
[2017-12-19] MEDS ORDERED: METHADONE HCL 10 MG TABLET (FOR DETOX USE ONLY) PO ONE ×2 (17:15→23:00)
[2017-12-19] MEDS: NICOTINE 21 MG/24 HOURS TOPICAL PATCH TD SCH (17:57)
[2017-12-19 20:36] LABS: URINE APPEARANCE CLEAR; URINE BILIRUBIN NEGATIVE (<2.0 mg/dL); URINE COLOR LTYELLOW; URINE GLUCOSE (UA) NEGATIVE (NEGATIVE); URINE KETONE NEGATIVE (NEGATIVE); URINE LEUK ESTERASE NEGATIVE (NEGATIVE); URINE NITRITE NEGATIVE (NEGATIVE); URINE PROTEIN NEGATIVE (NEGATIVE); URINE UROBILINOGEN NEGATIVE mg/dL (0.2-1.0)
[2017-12-19] MEDS ORDERED: THIAMINE HCL 100 MG TABLET (FP) PO SCH (22:00)
[2017-12-19] MEDS ORDERED: MELATONIN 5 MG TABLETS PO PRN (22:00)
[2017-12-19] MEDS: diazePAM 5 MG TABLET PO SCH (22:33)
[2017-12-20] MEDS: diazePAM 5 MG TABLET PO SCH ×2 (05:23→13:17)
[2017-12-20] MEDS ORDERED: PRENATAL VITAMINS W/ FOLIC ACID TABLET (FP) PO SCH (10:00)
[2017-12-20] MEDS ORDERED: METHADONE HCL 10 MG TABLET (FOR DETOX USE ONLY) PO SCH (10:00)
[2017-12-20 10:10] LABS: HEMOGLOBIN 13.4 GM/dL (11.7-16.9); MCH 27.5 pg (25.7-33.7); MCHC 32.7 g/dl (32.0-35.9); MEAN CELL VOLUME 84.1 fl (80-96); MEAN PLT VOLUME 8.6 fl (7.5-11.1); PLATELET COUNT 291 K/MM3 (134-434); RBC 4.87 M/mm3 (4.00-5.60); RDW 13.9 % (11.9-15.9); WHITE BLOOD COUNT 7.7 K/mm3 (4.0-10.0)
[2017-12-20] MEDS: NICOTINE 21 MG/24 HOURS TOPICAL PATCH TD SCH (10:32)
[2017-12-20 10:38] LABS: ALBUMIN 3.9 g/dl (3.4-5.0); ALK PHOS 142 U/L (45-117); ANION GAP 9 MMOL/L (8-16); BILIRUBIN,TOTAL 0.7 mg/dL (0.2-1); BLOOD UREA NITROGEN 10 mg/dL (7-18); CALCIUM 8.8 mg/dL (8.5-10.1); CHLORIDE 103 mmol/L (98-107); CO2 26 mmol/L (21-32); CREATININE 0.6 mg/dL (0.55-1.3); GLUCOSE,RANDOM 86 mg/dL (74-106); POTASSIUM 4.4 mmol/L (3.5-5.1); SGOT/AST 15 U/L (15-37); SGPT/ALT 15 U/L (13-61); SODIUM 138 mmol/L (136-145); TOT PROT 7.1 g/dl (6.4-8.2)
--- NOTE | 2017-12-20 11:26 | PN ---
S CIWA - CIWA Score Nausea/Vomitin-Mild Nausea/No Vomiting Muscle Tremors: 2 Anxiety: 4-Mod. Anxious/Guarded Agitation: 4-Moderately Restless Paroxysmal Sweats: No Perspiration Orientation: 0-Oriented Tacttile Disturbances: 0-None Auditory Disturbances: 0-None Visual Disturbances: 0-None Headache: 0-None Present CIWA-Ar Total Score: 11 BHS COWS - Scale Resting Pulse: 1= UT 81-100 Sweatin= Chills/Flushing Restless Observation: 1= Difficult to Sit Still Pupil Size: 0= Normal to Room Light Bone or Joint Aches: 2= Severe Diffuse Aches Runny Nose/ Eye Tearin= Nasal Congestion GI Upset > 30mins: 0= None Tremor Observation of Outstretched Hands: 2= Slight Tremor Visible Yawning Observation: 0= None Anxiety or Irritability: 1=Feels Anxious/Irritable Goose Flesh Skin: 0=Smooth Skin COWS Score: 9 S Progress Note (SOAP) Subjective: PATIENT C/O INTERRUPTED SLEEP, CHILLS, SHAKES, ANXIETY Objective: 12/20/17 11:23 Vital Signs Temperature 98.1 F 12/20/17 09:38 Pulse Rate 59 L 12/20/17 09:38 Respiratory Rate 18 12/20/17 09:38 Blood Pressure 94/64 12/20/17 09:38 O2 Sat by Pulse Oximetry (%) Vital Signs Temperature 98.1 F 12/20/17 09:38 Pulse Rate 59 L 12/20/17 09:38 Respiratory Rate 18 12/20/17 09:38 Blood Pressure 94/64 12/20/17 09:38 O2 Sat by Pulse Oximetry (%) Laboratory Tests 12/19/17 12/20/17 12/20/17 19:30 06:30 06:30 WBC 7.7 RBC 4.87 Hgb 13.4 Hct 41.0 MCV 84.1 MCH 27.5 MCHC 32.7 RDW 13.9 Plt Count 291 MPV 8.6 Sodium 138 Potassium 4.4 Chloride 103 Carbon Dioxide 26 Anion Gap 9 BUN 10 Creatinine 0.6 Creat Clearance w eGFR > 60 Random Glucose 86 Calcium 8.8 Total Bilirubin 0.7 AST 15 ALT 15 Alkaline Phosphatase 142 H Total Protein 7.1 Albumin 3.9 Urine Color Ltyellow Urine Appearance Clear Urine pH 6.0 Ur Specific [place] 1.006 L Urine Protein Negative Urine Glucose (UA) Negative Urine Ketones Negative Urine Blood 1+ H Urine Nitrite Negative Urine Bilirubin Negative Urine Urobilinogen Negative Ur Leukocyte Esterase Negative Urine WBC (Auto) None Urine RBC (Auto) 1 ALERT AND ORIENTED X 3 ANXIOUS/IRRITABLE-REFUSED FULL EXAM EXT +VISIBLE TREMORS, AMB AD JOE +NASAL CONGESTION Assessment: 12/20/17 11:25 WITHDRAWAL SX Plan: CONTINUE DETOX ORDERED ENCOURAGE ORAL FLUIDS CONTINUE TO MONITOR CLINICALLY
[2017-12-20 13:35] VITALS: BP 130/76; PULSE 80; TEMP 96
[2017-12-20] MEDS ORDERED: COLLOIDAL OATMEAL 1 BAR EACH TP PRN (13:49)
--- NOTE | 2017-12-20 15:29 | DS ---
[facility] Detox Discharge Summary Admission Date: 12/19/17 Discharge Date: 12/20/17 - History Present History: Alcohol Dependence, Opioid Dependence, Sedative Dependence - Physical Exam Results Vital Signs: Vital Signs Temperature 96.0 F L 12/20/17 13:34 Pulse Rate 80 12/20/17 13:34 Respiratory Rate 20 12/20/17 13:34 Blood Pressure 130/76 12/20/17 13:34 O2 Sat by Pulse Oximetry (%) Pertinent Admission Physical Exam Findings: NOTIFIED BY RN PATIENT REQUESTED TO SIGN OUT AMA. PATIENT BECAME AGITATED BUT DID NOT TELL STAFF WHY HE WAS UPSET. PATIENT STATED " I WANT TO LEAVE NOW!" AND PUNCHED WALL INSIDE OF ROOM. PATIENT OFFERED TO SPEAK TO PROVIDER AND PSYCHIATRIST BUT PATIENT REFUSED. 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 - Medication Discharge Medications: Ambulatory Orders Buprenorphine/Naloxone [Suboxone 2Mg/0.5MG Sl Film -] 1 each SL DAILY #30 film MDD 1 06/28/17 Divalproex [Depakote -] 250 mg PO TID #90 tablet.ec 06/28/17 Olanzapine [Zyprexa] 20 mg PO HS #30 tablet 06/28/17 - Diagnosis (1) Alcohol dependence with uncomplicated withdrawal Current Visit: No Status: Acute (2) Opioid dependence with withdrawal Current Visit: No Status: Acute - AMA Did Patient Leave Against Medical Advice: Yes
--- NOTE | 2017-12-20 16:07 | EKG ---
Test Reason : Blood Pressure : / mmHG Vent. Rate : 084 BPM Atrial Rate : 084 BPM P-R Int : 098 ms QRS Dur : 082 ms QT Int : 354 ms P-R-T Axes : 033 085 054 degrees QTc Int : 418 ms SINUS RHYTHM WITH SHORT MS OTHERWISE NORMAL ECG WHEN COMPARED WITH ECG OF 11-JUN-2017 22:38, NO SIGNIFICANT CHANGE WAS FOUND Confirmed by MD MICHAEL, NAVEED ([id number]) on 12/20/2017 4:07:12 PM Referred By: Confirmed By:NAVEED RODRIGUEZ MD
[2017-12-20] MEDS ORDERED: HYDROCORTISONE 0.5% TOPICAL CREAM 30 GM TUBE TP SCH (22:00)
[2017-12-21] MEDS ORDERED: METHADONE HCL 5 MG TABLET (FOR DETOX USE ONLY) PO SCH (10:00)
[2017-12-21] MEDS ORDERED: diazePAM 5 MG TABLET PO SCH (10:00)
[2017-12-23] MEDS ORDERED: diazePAM 5 MG TABLET PO SCH (10:00)
[2017-12-23] MEDS ORDERED: METHADONE HCL 10 MG TABLET (FOR DETOX USE ONLY) PO SCH (10:00)
[2017-12-24] MEDS ORDERED: METHADONE HCL 5 MG TABLET (FOR DETOX USE ONLY) PO SCH (06:00)
== END 2017-12-20 14:18 | disposition left against medical advice (07) | DRG 770 ==
LOC: YASAS 11:44 → Y3N 16:23
PROC: HZ2ZZZZ Detoxification Services for Substance Abuse Treatment (ICD-10-PCS; principal; 2017-12-19)
DX: F11.23 Opioid dependence with withdrawal (principal); F10.230 Alcohol dependence with withdrawal, uncomplicated; F13.20 Sedative, hypnotic or anxiolytic dependence, uncomplicated; F31.9 Bipolar disorder, unspecified; F17.210 Nicotine dependence, cigarettes, uncomplicated; B18.2 Chronic viral hepatitis C; Z91.14 Patient's other noncompliance with medication regimen
CPT/HCPCS: 36415; 80053; 81003; 81015; 85027; 86593; 93005; 93010

== ENCOUNTER 2023-03-17 14:26 | Inpatient (IN) | payer OTHER ==
[2023-03-17 15:26] VITALS: BMI 17.5
[2023-03-17] MEDS ORDERED: DOCUSATE SODIUM 100 MG CAPSULE (FP) PO PRN (18:22)
[2023-03-17] MEDS ORDERED: NICOTINE POLACRILEX 2 MG GUM BUC PRN (18:22)
[2023-03-17] MEDS ORDERED: NALOXONE HCL 0.4 MG/ML VIAL IM PRN (18:22)
[2023-03-17] MEDS ORDERED: BENZOCAINE/MENTHOL (CHLORASEPTIC ) LOZENGE MM PRN (18:22)
[2023-03-17] MEDS ORDERED: IBUPROFEN 400 MG TABLET (FP) PO PRN (18:22)
[2023-03-17] MEDS ORDERED: MAGNESIUM HYDROX 2400MG/30ML ORAL SUSPENSION 30 ML CUP PO PRN (18:22)
[2023-03-17] MEDS ORDERED: hydrOXYzine PAMOATE 25 MG CAPSULE (FP) PO PRN (18:22)
[2023-03-17] MEDS ORDERED: guaiFENesin 600 MG TABLET.ER (FP) PO PRN (18:22)
[2023-03-17] MEDS ORDERED: POLYETHYLENE GLYCOL (HEALTHYLAX) 3350 17 GM PACKET PO PRN (18:22)
[2023-03-17] MEDS ORDERED: NALOXONE HCL (KLOXXADO) 8 MG SPRAY NS PRN (18:22)
[2023-03-17] MEDS ORDERED: LOPERAMIDE HCL 2 MG CAPSULE PO PRN (18:22)
[2023-03-17] MEDS ORDERED: BENZONATATE 200 MG CAPSULE PO PRN (18:22)
[2023-03-17] MEDS ORDERED: IBUPROFEN 600 MG TABLET (FP) PO PRN (18:22)
[2023-03-17] MEDS ORDERED: P-EPHED 60MG/TRIPROLIDI 2.5MG TABLET PO PRN (18:22)
[2023-03-17] MEDS ORDERED: MAG HYDROX/AL HYDROX/SIMETH 30 ML UNIT-DOSE CUP PO PRN (18:22)
[2023-03-17] MEDS ORDERED: ACETAMINOPHEN 325 MG TABLET (FP) PO PRN (18:22)
[2023-03-17] MEDS ORDERED: MELATONIN 5 MG TABLETS PO SCH (22:00)
[2023-03-17] MEDS ORDERED: THIAMINE HCL 100 MG TABLET (FP) PO SCH (22:00)
[2023-03-17] MEDS ORDERED: TUBERCULIN PPD 5 TU/0.1ML SYRINGE (IN PATIENT USE ONLY) ID ONE (22:23)
[2023-03-18 07:26] VITALS: BP 134/90; PULSE 65; RESP 16; TEMP 97.9
[2023-03-18] MEDS ORDERED: PRENATAL VITAMINS W/ FOLIC ACID TABLET (FP) PO SCH (10:00)
[2023-03-18 10:37] LABS: HEMATOCRIT 36.5 % (35.4-49); HEMOGLOBIN 12.4 GM/dL (11.7-16.9); MCH 28.3 pg (25.7-33.7); MEAN CELL VOLUME 83.2 fl (80-96); MEAN PLT VOLUME 8.8 fl (7.5-11.1); PLATELET COUNT 291 10^3/uL (134-434); RBC 4.38 M/mm3 (4.00-5.60); RDW 13.4 % (11.9-15.9); WHITE BLOOD COUNT 4.2 K/mm3 (4.0-10.0)
[2023-03-18 10:52] LABS: POTASSIUM 4.2 mmol/L (3.5-5.1)
[2023-03-18 10:55] LABS: ALBUMIN 3.6 g/dl (3.4-5.0)
[2023-03-18 10:56] LABS: BLOOD UREA NITROGEN 11.6 mg/dL (7-18)
[2023-03-18 10:57] LABS: CALCIUM 9.1 mg/dL (8.5-10.1)
[2023-03-18 10:58] LABS: CREATININE 0.6 mg/dL (0.55-1.3)
[2023-03-18 11:00] LABS: BILIRUBIN,TOTAL 0.8 mg/dL (0.2-1); TOT PROT 6.8 g/dl (6.4-8.2)
[2023-03-18 13:09] LABS: SYPHILIS W/ RPR CONF NON-REACTIVE (NONREACTIVE)
== END 2023-03-18 10:40 | disposition left against medical advice (07) | DRG 770 ==
LOC: YASAS 14:26 → Y3E 18:32
PROVIDERS: ADMIT Allergy & Immunology; ATTEND Psychiatry & Neurology Pain Medicine
PROC: HZ42ZZZ Group Counseling for Substance Abuse Treatment, Cognitive-Behavioral (ICD-10-PCS; principal; 2023-03-17)
DX: F11.20 Opioid dependence, uncomplicated (principal); F12.20 Cannabis dependence, uncomplicated; F17.210 Nicotine dependence, cigarettes, uncomplicated; F19.280 Other psychoactive substance dependence with psychoactive substance-induced anxiety disorder; F31.81 Bipolar II disorder; F39 Unspecified mood [affective] disorder; F91.8 Other conduct disorders; Z91.199 Patient's noncompliance with other medical treatment and regimen due to unspecified reason; Z59.00 Homelessness unspecified; Z88.0 Allergy status to penicillin
CPT/HCPCS: 36415; 80053; 85027; 86780; 86803; 87522; 87635; 87811